=== PATIENT | female | born 1965 | race Caucasian/White ===

== ENCOUNTER 2018-11-10 19:36 | Emergency (ER) | payer MEDICAID ==
[2018-11-10] MEDS ORDERED: TRAZ50TA34 PO ×2 (19:48→21:47)
[2018-11-10] MEDS ORDERED: HYDR-2966 PO (19:48)
--- NOTE | 2018-11-10 19:57 | ER Report ---
History and Physical Time Seen By MD: 19:44 Hx. of Stated Complaint: started feeling bad about an hour ago. pain in rt shoulder and scapula when breathing HPI/ROS CHIEF COMPLAINT: Pain with inspiration HISTORY OF PRESENT ILLNESS: 53-year-old female patient presents to the emergency room with complaint of pain with inspiration. Patient states that the pain started approximately one hour prior to arrival. She states the pain is behind the right shoulder blade. She states that she has worsening pain whenever she takes a deep breath in. She states that the pain is a 9 out of 10. She does have a history of bulging disc in her neck. She states that that was diagnosed here in the emergency room several years ago. She denies having any fevers, chills, nausea, vomiting or diarrhea. She states that she has not taken any medication for this. She states that she is not able to find a way to set that is comfortable for her. REVIEW OF SYSTEMS: Respiratory: As noted above Cardiovascular: No chest pain, no palpitations. Gastrointestinal: No vomiting, no abdominal pain. Musculoskeletal: As noted above Allergies: Uncoded Allergies: phenothyzines (Allergy, Unknown, 11/10/18) Home Meds Active Scripts Clonidine Hcl (CLONIDINE HCL) 0.1 Mg Tablet, 0.1 MG PO BID PRN for HYPERTENSION, #14 TAB Prov:ANTONY BETANCOURT [facility] 11/10/18 Trazodone Hcl (TRAZODONE HCL) 50 Mg Tablet, 50 MG PO QHS PRN for INSOMNIA, #14 TAB Prov:ANTONY BETANCOURT [facility] 11/10/18 Prednisone (PREDNISONE) 20 Mg Tablet, 40 MG PO DAILY, #10 TAB Prov:ANTONY BETANCOURT [facility] 11/10/18 Hydrocodone Bit/Acetaminophen (HYDROCODON-ACETAMINOPHEN 5-325) 1 Each Tablet, 1 EACH PO Q4-6H PRN for PAIN, #8 TAB Prov:ANTONY BETANCOURT [facility] 11/10/18 Reported Medications Hydrochlorothiazide (HYDROCHLOROTHIAZIDE) 25 Mg Tablet, 1 TAB PO QDAY, TAB 11/10/18 Trazodone Hcl (TRAZODONE HCL) 50 Mg Tablet, 50 MG PO TID 11/10/18 Past Medical/Surgical History Patient has a past medical history of COPD, cholecystitis, herniated disc in neck, cervical cancer. Patient has a surgical history of appendectomy, cholecystectomy, liposuction. Reviewed Nurses Notes: Yes Hx Substance Use Disorder: No Hx Alcohol Use: No Constitutional Vital Sign - Last 24 Hours 11/10/18 11/10/18 11/10/18 11/10/18 19:38 19:41 19:51 20:00 Temp 98.5 Pulse 96 101 Resp 24 B/P (MAP) 133/105 133/105 (114) 156/136 (143) Pulse Ox 93 92 O2 Delivery Nasal Cannula 11/10/18 11/10/18 11/10/18 11/10/18 20:06 20:21 20:30 20:36 Pulse 99 94 ??? B/P (MAP) ???/??? (1665) Pulse Ox 94 95 11/10/18 11/10/18 11/10/18 11/10/18 20:44 20:49 21:00 21:04 Pulse 95 93 B/P (MAP) 181/138 (152) 188/125 (146) Pulse Ox 91 89 11/10/18 11/10/18 11/10/18 11/10/18 21:19 21:30 21:34 21:49 Pulse 92 89 85 B/P (MAP) 197/139 (158) Pulse Ox 91 92 92 Physical Exam General Appearance: The patient is alert, has no immediate need for airway protection and no current signs of toxicity. Respiratory: Chest is non tender, lungs are clear to auscultation. Cardiac: regular rate and rhythm Gastrointestinal: Abdomen is soft and non tender, no masses, bowel sounds normal. Musculoskeletal: Neck: Neck is supple and non tender. Extremities have full range of motion and are non tender. Skin: No rashes or lesions. DIFFERENTIAL DIAGNOSIS: After history and physical exam differential diagnosis was considered for shortness of breath including but not limited to pulmonary infectious process, COPD, asthma, pulmonary embolus and congestive heart failure. Included in the differential is pain secondary to bulging disc in neck. Medical Decision Making Data Points Result Diagram: 11/10/18201811/10/182018 Laboratory Hematology Test 11/10/18 20:19 Red Blood Count 4.86 M/uL (4.17-5.56) Mean Corpuscular Volume 94.8 fL (80.0-96.0) Mean Corpuscular Hemoglobin 31.1 pg (26.0-33.0) Mean Corpuscular Hemoglobin Concent 32.8 g/dL (32.0-36.0) Red Cell Distribution Width 15.9 % (11.5-14.5) Mean Platelet Volume 7.4 fL (7.2-11.1) Neutrophils (%) (Auto) 78.8 % (39.4-72.5) Lymphocytes (%) (Auto) 16.7 % (17.6-49.6) Monocytes (%) (Auto) 3.2 % (4.1-12.4) Eosinophils (%) (Auto) 0.4 % (0.4-6.7) Basophils (%) (Auto) 0.9 % (0.3-1.4) Nucleated RBC Relative Count (auto) 0.0 /100WBC Neutrophils # (Auto) 10.0 K/uL (2.0-7.4) Lymphocytes # (Auto) 2.1 K/uL (1.3-3.6) Monocytes # (Auto) 0.4 K/uL (0.3-1.0) Eosinophils # (Auto) 0.0 K/uL (0.0-0.5) Basophils # (Auto) 0.1 K/uL (0.0-0.1) Nucleated RBC Absolute Count (auto) 0.00 K/uL Erythrocyte Sedimentation Rate 14 mm/HOUR (0-30) D-Dimer Quantitative (PE/DVT) 0.47 ug/ml (0-0.50) Sodium Level 137 mmol/L (137-145) Potassium Level 3.9 mmol/L (3.5-5.0) Chloride Level 95 mmol/L (98-107) Carbon Dioxide Level 35 mmol/L (22-31) Blood Urea Nitrogen 8 mg/dl (7-18) Creatinine 0.60 mg/dl (0.52-1.04) Glomerular Filtration Rate Calc > 60.0 Random Glucose 93 mg/dl (75-110) Calcium Level 8.9 mg/dl (8.4-10.2) Total Bilirubin 0.4 mg/dl (0.2-1.3) Aspartate Amino Transf (AST/SGOT) 64 U/L (0-35) Alanine Aminotransferase (ALT/SGPT) 66 U/L (0-56) Alkaline Phosphatase 109 U/L (0-126) Troponin I < 0.012 ng/ml Total Protein 7.0 g/dl (6.3-8.2) Albumin 3.8 g/dl (3.5-5.0) Chemistry Test 11/10/18 20:19 White Blood Count 12.6 k/uL (4.5-11.0) Red Blood Count 4.86 M/uL (4.17-5.56) Hemoglobin 15.1 g/dL (12.0-16.0) Hematocrit 46.1 % (34.0-47.0) Mean Corpuscular Volume 94.8 fL (80.0-96.0) Mean Corpuscular Hemoglobin 31.1 pg (26.0-33.0) Mean Corpuscular Hemoglobin Concent 32.8 g/dL (32.0-36.0) Red Cell Distribution Width 15.9 % (11.5-14.5) Platelet Count 400 K/uL (150-450) Mean Platelet Volume 7.4 fL (7.2-11.1) Neutrophils (%) (Auto) 78.8 % (39.4-72.5) Lymphocytes (%) (Auto) 16.7 % (17.6-49.6) Monocytes (%) (Auto) 3.2 % (4.1-12.4) Eosinophils (%) (Auto) 0.4 % (0.4-6.7) Basophils (%) (Auto) 0.9 % (0.3-1.4) Nucleated RBC Relative Count (auto) 0.0 /100WBC Neutrophils # (Auto) 10.0 K/uL (2.0-7.4) Lymphocytes # (Auto) 2.1 K/uL (1.3-3.6) Monocytes # (Auto) 0.4 K/uL (0.3-1.0) Eosinophils # (Auto) 0.0 K/uL (0.0-0.5) Basophils # (Auto) 0.1 K/uL (0.0-0.1) Nucleated RBC Absolute Count (auto) 0.00 K/uL Erythrocyte Sedimentation Rate 14 mm/HOUR (0-30) D-Dimer Quantitative (PE/DVT) 0.47 ug/ml (0-0.50) Glomerular Filtration Rate Calc > 60.0 Calcium Level 8.9 mg/dl (8.4-10.2) Total Bilirubin 0.4 mg/dl (0.2-1.3) Aspartate Amino Transf (AST/SGOT) 64 U/L (0-35) Alanine Aminotransferase (ALT/SGPT) 66 U/L (0-56) Alkaline Phosphatase 109 U/L (0-126) Troponin I < 0.012 ng/ml Total Protein 7.0 g/dl (6.3-8.2) Albumin 3.8 g/dl (3.5-5.0) Coagulation Test 11/10/18 20:19 D-Dimer Quantitative (PE/DVT) 0.47 ug/ml EKG/Imaging EKG Interpretation 12 lead EKG: Rhythm: normal sinus rhythm [place]: normal QRS: normal, prolonged QT interval ST segments: normal Imaging Examination: CHEST PA AND LAT Comparison: None. History: pain with inspiration Findings: Cardiac and hilar contour size is within normal limits. No consolidation, nodule, or peribronchial inflammation. No pneumothorax, edema, or effusion. Osseous structures are intact. IMPRESSION: No evidence of acute cardiopulmonary disease. Report Dictated By: Tim Bassett MD at 11/10/2018 9:24 PM Report E-Signed By: Tim Bassett MD at 11/10/2018 9:27 PM ED Course/Re-evaluation ED Course Patient was admitted to an exam room, history and physical were obtained. Differential diagnoses were considered. On examination lungs are clear, heart is regular, abdomen soft nontender. Patient does have some tenderness to the right shoulder although the pain that she states she has is "deeper down. A chest x- ray was done to rule out pneumonia that was normal. CBC, CMP, troponin, d-dimer, ESR, CRP were done. Lab results were unremarkable, patient did have an elevated white count, but with those likely secondary to stress response. Patient had no fever here in the emergency room. I discussed the findings with the patient. I believe that this is likely related to her neck and the bulging disc that she's had in the past. I think there is inflammation along the nerve root. We'll go ahead and treat her with a limited supply of pain medication, prednisone. Patient requested that she get a prescription for oxygen as well as a refill of her trazodone. Those will be refilled for short. Time so she can set up with a primary care provider here in town. I discussed this with the patient who verbalized understanding and agreement with plan. Patient did have elevated blood pressure, 180/130. I did treat her with 0.1 mg of clonidine which brought her blood pressure down to 164/103. We will go ahead and send her with a prescription for clonidine that she can take as needed for high blood pressure. Decision to Disposition Date: Nov 10, 2018 Decision to Disposition Time: 21:43 Depart Departure Latest Vital Signs Vital Signs Date Time Temp Pulse Resp B/P (MAP) Pulse Ox O2 Delivery O2 Flow Rate FiO2 11/10/18 21:49 85 92 11/10/18 21:30 197/139 (158) 11/10/18 19:38 98.5 24 Nasal Cannula Impression: Primary Impression: COPD (chronic obstructive pulmonary disease) Additional Impressions: Right shoulder pain Insomnia Condition: Improved Disposition: HOME OR SELF-CARE New Scripts Clonidine Hcl (CLONIDINE HCL) 0.1 Mg Tablet 0.1 MG PO BID PRN for HYPERTENSION, #14 TAB Prov: ANTONY BETANCOURTP 11/10/18 Trazodone Hcl (TRAZODONE HCL) 50 Mg Tablet 50 MG PO QHS PRN for INSOMNIA, #14 TAB Prov: ANTONY BETANCOURT [facility] 11/10/18 Prednisone (PREDNISONE) 20 Mg Tablet 40 MG PO DAILY, #10 TAB Prov: ANTONY BETANCOURT [facility] 11/10/18 Hydrocodone Bit/Acetaminophen (HYDROCODON-ACETAMINOPHEN 5-325) 1 Each Tablet 1 EACH PO Q4-6H PRN for PAIN, #8 TAB Prov: ANTONY BETANCOURTP 11/10/18 Departure Forms: ER Transition Record, Home Oxygen, Nebulizer RX, Home Oxygen [facility]-Oxygen: Oxygen Concentrator, Portable Oxygen Gas Reason for Use/Diagnosis: COPD Start Date of the Order: Nov 10, 2018 Dosage or Concentration (if applicable) - LPM: 4 Route of Administration (if applicable): Nasal Cannula Frequency of Use: Continuous Duration Home O2 Required: 1 Duration Units: Months Room Air Oxygen Saturation: 83 ER Prescribing Physician's Name: Antonyrobinson Betancourt NPI Numbers for Local ER MDs: Serafin [id number] Medications Reconciliation, Patient Portal Information Patient Instructions: COPD (Chronic Obstructive Pulmonary Disease) (ED) Additional Instructions: Limit activity by pain. Get plenty of rest. Follow up with your primary care provider in the next week. Continue with low salt diet. Return to the ER if condition worsens. Problem Qualifiers Primary Impression: COPD (chronic obstructive pulmonary disease) COPD type: COPD with acute exacerbation Qualified Codes: J44.1 - Chronic obstructive pulmonary disease with (acute) exacerbation Additional Impressions: Right shoulder pain Chronicity: acute Qualified Codes: M25.511 - Pain in right shoulder Insomnia Insomnia type: unspecified Qualified Codes: G47.00 - Insomnia, unspecified ANTONY BETANCOURT Nov 10, 2018 19:57
[2018-11-10] MEDS ORDERED: NS(*) 0.9% 500 ML BAG 500 ML IV ONE (20:00)
[2018-11-10] MEDS ORDERED: MORPHINE 4 MG/ML SDV IVP ONE (20:00)
[2018-11-10 20:44] LABS: PLATELET COUNT, AUTOMATED 400 K/uL (150-450)
--- NOTE | 2018-11-10 21:28 | EKG ---
[place] [facility] [place]IENT NAME: AMOS PEREZ : [id number] MR: [id number] V: [id number] EXAM DATE: ORDERING PHYSICIAN: JUAN ÁLVAREZ TECHNOLOGIST: BERENICE Test Reason : PAIN WITH INSPIRATIO Blood Pressure : / mmHG Vent. Rate : 090 BPM Atrial Rate : 090 BPM P-R Int : 126 ms QRS Dur : 074 ms QT Int : 378 ms P-R-T Axes : 042 052 058 degrees QTc Int : 462 ms Normal sinus rhythm Inverted T wave V1-4 with flattened T in V 5-6 is a non-specific finding. Consider electrolyte abnor mality, lead placement, normal variant or ischemia. Mildly prolonged QTc. Abnormal ECG No previous ECGs available Confirmed by ROC YOUNGBLOOD ([id number]) on 11/11/2018 3:02:37 AM Referred By: Confirmed By:ROC YOUNGBLOOD
--- NOTE | 2018-11-10 21:32 | RADIOLOGY IMAGING REPORT ---
FACILITY: [facility] - [place] PATIENT NAME: Stacy Sommer : 1965 MR: [id number] V: [id number] EXAM DATE: ORDERING PHYSICIAN: JUAN ÁLVAREZ TECHNOLOGIST: Location: [facility] Patient: Stacy Sommer : 1965 Visit/Account:[id number] Date of Sevice: 11/10/2018 Examination: CHEST PA AND LAT Comparison: None. History: pain with inspiration Findings: Cardiac and hilar contour size is within normal limits. No consolidation, nodule, or perib ronchial inflammation. No pneumothorax, edema, or effusion. Osseous structures are intact. IMPRESSION: No evidence of acute cardiopulmonary disease. Report Dictated By: Tim Bassett MD at 11/10/2018 9:24 PM Report E-Signed By: Tim Bassett MD at 11/10/2018 9:27 PM [id number]
[2018-11-10] MEDS ORDERED: PRED20TA6 PO (21:47)
[2018-11-10] MEDS ORDERED: HYDR-385 PO (21:47)
[2018-11-10] MEDS ORDERED: CLON-327 PO (21:50)
[2018-11-10] MEDS ORDERED: cloNIDine HCL 0.1 MG TAB PO ONE (21:55)
[2018-11-10 22:19] VITALS: BP 164/103
[2018-11-10] MEDS ORDERED: ACET/HYDROC 5/325MG TH ER ONLY 2 TAB/BOTTLE ONE (22:33)
== END 2018-11-10 22:23 | disposition home or self-care (01) ==
LOC: ER 19:58
DX: J44.1 Chronic obstructive pulmonary disease with (acute) exacerbation (principal); M25.511 Pain in right shoulder; G47.00 Insomnia, unspecified
CPT/HCPCS: 36415; 71046; 84484; 85025; 85379; 85651; 86141; 93005; 96361; 96374; 99284; J2270; J7040; 82040; 82247; 82310; 82374; 82435; 82565; 82947; 84075; 84132; 84155; 84295; 84450; 84460; 84520

== ENCOUNTER → 2018-11-10 | Outpatient (CLI) | payer MEDICAID ==
[~2018-11-10] MED LIST: CLON-327 PO; HYDR-2966 PO; HYDR-385 PO; PRED20TA6 PO; TRAZ50TA34 PO
== END ==
LOC: AMB 19:15
PROVIDERS: ATTEND Nurse Practitioner
DX: M54.9 Dorsalgia, unspecified (principal); R06.02 Shortness of breath
CPT/HCPCS: A0425; A0429

== ENCOUNTER 2018-12-27 11:03 | Inpatient (IN) | payer MEDICAID ==
[~2018-12-27] VITALS: Ht 154.9 cm; Wt 117.9 kg
--- NOTE | 2018-12-27 11:11 | ER Report ---
History and Physical Time Seen By MD: 11:11 HPI/ROS CHIEF COMPLAINT: Shortness of breath HISTORY OF PRESENT ILLNESS: This is a 53-year-old female who presents to the emergency department for shortness of breath. The patient states that yesterday afternoon she began having shortness of breath, progressing through the night worse today. Not exertional in nature. Patient also states that she has chest pressure, some chills and aches, a headache. She states that she was babysitting her granddaughter yesterday she is not sure of her granddaughter was ill. She denies fevers. No rashes, no chest pain. The patient was here about one month ago with COPD exacerbation. REVIEW OF SYSTEMS: Constitutional: As above. Eyes: No discharge. ENT: No sore throat. Cardiovascular: No chest pain, no palpitations. Respiratory: As above. Gastrointestinal: No abdominal pain, no vomiting. Genitourinary: No hematuria. Musculoskeletal: No back pain. Skin: No rashes. Neurological: As above. Allergies: Uncoded Allergies: phenothyzines (Allergy, Unknown, 11/10/18) Home Meds Active Scripts Clonidine Hcl (CLONIDINE HCL) 0.1 Mg Tablet, 0.1 MG PO BID PRN for HYPERTENSION, #14 TAB Prov:JUAN ÁLVAREZ [facility] 11/10/18 Trazodone Hcl (TRAZODONE HCL) 50 Mg Tablet, 50 MG PO QHS PRN for INSOMNIA, #14 TAB Prov:JUAN ÁLVAREZ [facility] 11/10/18 Hydrocodone Bit/Acetaminophen (HYDROCODON-ACETAMINOPHEN 5-325) 1 Each Tablet, 1 EACH PO Q4-6H PRN for PAIN, #8 TAB Prov:JUAN ÁLVAREZ [facility] 11/10/18 Reported Medications Hydrochlorothiazide (HYDROCHLOROTHIAZIDE) 25 Mg Tablet, 1 TAB PO QDAY, TAB 11/10/18 Trazodone Hcl (TRAZODONE HCL) 50 Mg Tablet, 50 MG PO TID 11/10/18 Discontinued Scripts Prednisone (PREDNISONE) 20 Mg Tablet, 40 MG PO DAILY, #10 TAB Prov:JUAN ÁLVAREZP 11/10/18 Past Medical/Surgical History The patient has a past medical and surgical history of COPD, wears continuous oxygen, asthma, pneumonia, urinary frequency, herniated disks in neck, chronic back pain, wears glasses, appendectomy, cholecystectomy, mobile at removed from back. Reviewed Nurses Notes: Yes Hx Substance Use Disorder: No Hx Alcohol Use: No Constitutional Vital Sign - Last 24 Hours 12/27/18 12/27/18 12/27/18 12/27/18 11:03 11:10 11:13 11:16 Temp 99.6 Pulse ??? 103 Resp 24 B/P (MAP) 147/101 (116) 147/101 163/111 (128) Pulse Ox 90 O2 Delivery Nasal Cannula 12/27/18 12/27/18 12/27/18 12/27/18 11:18 11:33 11:46 11:48 Pulse 102 99 101 Resp 15 30 17 Pulse Ox 92 97 91 O2 Flow Rate 3.0 12/27/18 12/27/18 12/27/18 12/27/18 11:59 12:03 12:18 12:23 Pulse 103 98 99 Resp 23 33 28 B/P (MAP) 142/104 (117) Pulse Ox 92 89 12/27/18 12/27/18 12/27/18 12/27/18 12:23 12:30 12:33 12:48 Pulse 111 109 Resp 16 56 B/P (MAP) 137/84 (101) Pulse Ox 96 88 95 O2 Delivery Nasal Cannula O2 Flow Rate 3.0 12/27/18 12/27/18 13:00 13:26 Temp 98.5 B/P (MAP) ???/??? (2235) Physical Exam General Appearance: The patient is alert, has no immediate need for airway protection and no signs of toxicity, pursed lips, working hard to exhale. Eyes: Pupils equal and round no pallor or injection. ENT, Mouth: Mucous membranes are dry. Respiratory: There are no retractions, diminished throughout. Pursed lip breathi ng. Cardiovascular: Regular rate and rhythm, distant, no murmurs, clicks or rubs. Gastrointestinal: Abdomen is soft, round, and non tender, no masses, bowel sounds normal. Neurological: Alert and oriented 4. Moving all extremities. Following all commands. No focal neuro deficits. Skin: Warm and dry, no rashes. Musculoskeletal: Neck is supple non tender. Extremities are nontender, nonswollen and have full range of motion. DIFFERENTIAL DIAGNOSIS: After history and physical exam differential diagnosis was considered for shortness of breath including but not limited to pulmonary infectious process, COPD, asthma, pulmonary embolus and congestive heart failure. Medical Decision Making Data Points Result Diagram: 12/27/18 1134 12/27/18 1817 Laboratory Hematology Test 12/27/18 11:14 12/27/18 11:34 12/27/18 11:48 Influenza Virus Type A (PCR) Positive (NEGATIVE) Influenza Virus Type B (PCR) Negative (NEGATIVE) Red Blood Count 4.27 M/uL (4.17-5.56) Mean Corpuscular Volume 99.5 fL (80.0-96.0) Mean Corpuscular Hemoglobin 33.1 pg (26.0-33.0) Mean Corpuscular Hemoglobin Concent 33.3 g/dL (32.0-36.0) Red Cell Distribution Width 16.8 % (11.5-14.5) Mean Platelet Volume 7.6 fL (7.2-11.1) Neutrophils (%) (Auto) 88.8 % (39.4-72.5) Lymphocytes (%) (Auto) 5.0 % (17.6-49.6) Monocytes (%) (Auto) 5.6 % (4.1-12.4) Eosinophils (%) (Auto) 0.1 % (0.4-6.7) Basophils (%) (Auto) 0.5 % (0.3-1.4) Nucleated RBC Relative Count (auto) 0.0 /100WBC Neutrophils # (Auto) 6.1 K/uL (2.0-7.4) Lymphocytes # (Auto) 0.3 K/uL (1.3-3.6) Monocytes # (Auto) 0.4 K/uL (0.3-1.0) Eosinophils # (Auto) 0.0 K/uL (0.0-0.5) Basophils # (Auto) 0.0 K/uL (0.0-0.1) Nucleated RBC Absolute Count (auto) 0.00 K/uL B-Type Natriuretic Peptide 143 pg/ml (0-100) Total Bilirubin 0.9 mg/dl (0.2-1.3) Aspartate Amino Transf (AST/SGOT) 108 U/L (0-35) Alanine Aminotransferase (ALT/SGPT) 96 U/L (0-56) Alkaline Phosphatase 72 U/L (0-126) Troponin I < 0.012 ng/ml Total Protein 6.3 g/dl (6.3-8.2) Albumin 3.8 g/dl (3.5-5.0) Chemistry Test 12/27/18 11:14 12/27/18 11:34 12/27/18 11:48 Influenza Virus Type A (PCR) Positive (NEGATIVE) Influenza Virus Type B (PCR) Negative (NEGATIVE) White Blood Count 6.9 k/uL (4.5-11.0) Red Blood Count 4.27 M/uL (4.17-5.56) Hemoglobin 14.1 g/dL (12.0-16.0) Hematocrit 42.5 % (34.0-47.0) Mean Corpuscular Volume 99.5 fL (80.0-96.0) Mean Corpuscular Hemoglobin 33.1 pg (26.0-33.0) Mean Corpuscular Hemoglobin Concent 33.3 g/dL (32.0-36.0) Red Cell Distribution Width 16.8 % (11.5-14.5) Platelet Count 176 K/uL (150-450) Mean Platelet Volume 7.6 fL (7.2-11.1) Neutrophils (%) (Auto) 88.8 % (39.4-72.5) Lymphocytes (%) (Auto) 5.0 % (17.6-49.6) Monocytes (%) (Auto) 5.6 % (4.1-12.4) Eosinophils (%) (Auto) 0.1 % (0.4-6.7) Basophils (%) (Auto) 0.5 % (0.3-1.4) Nucleated RBC Relative Count (auto) 0.0 /100WBC Neutrophils # (Auto) 6.1 K/uL (2.0-7.4) Lymphocytes # (Auto) 0.3 K/uL (1.3-3.6) Monocytes # (Auto) 0.4 K/uL (0.3-1.0) Eosinophils # (Auto) 0.0 K/uL (0.0-0.5) Basophils # (Auto) 0.0 K/uL (0.0-0.1) Nucleated RBC Absolute Count (auto) 0.00 K/uL B-Type Natriuretic Peptide 143 pg/ml (0-100) Total Bilirubin 0.9 mg/dl (0.2-1.3) Aspartate Amino Transf (AST/SGOT) 108 U/L (0-35) Alanine Aminotransferase (ALT/SGPT) 96 U/L (0-56) Alkaline Phosphatase 72 U/L (0-126) Troponin I < 0.012 ng/ml Total Protein 6.3 g/dl (6.3-8.2) Albumin 3.8 g/dl (3.5-5.0) EKG/Imaging EKG Interpretation 12 lead EKG: Time of EKG 1114 Rhythm: Sinus tachycardia with ventricular rate 103 bpm. [place]: normal QRS: Low voltage. ST segments: No ST depression or elevation identified. Inverted T waves in V1, V2, flattening T waves in V3 through V6. No significant changes from the 11/10/2018 EKG other than current EKG showing flattened T waves in V3 through V6 where his and the November EKG inverted T waves. Imaging Location: [facility] - [place] Patient: Stacy Sommer : 1965 Visit/Account:[id number] Date of Sevice: 12/27/2018 2 VIEWS CHEST INDICATION: Respiratory distress. History smoking. COMPARISON: 11/10/2018. FINDINGS: Cardiomediastinal silhouette and pulmonary vessels within normal limits. There is no focal infiltrate or lobar consolidation. There is no pneumothorax or pleural effusion. No nodule. There is again some mild thickening of the right minor fissure. Mild chronic interstitial changes. Upper abdomen is unremarkable. No acute bony abnormality. IMPRESSION: 1. No acute cardiopulmonary process. Report Dictated By: Sylvester Monsivais at 12/27/2018 12:10 PM Report E-Signed By: Sylvester Monsivais at 12/27/2018 12:12 PM WSN:[id number] ED Course/Re-evaluation Clinical Indication for ER IV: Hydration, IV Access ED Course The patient was admitted to a room. A history and physical were obtained. Differential diagnoses were considered. An IV was started. A CBC, CMP and 1 L normal saline bolus were given. Patient was given 2 DuoNeb which did improve her aeration. She was also given so 0.5 mg IV Ativan for anxiety.Patient was given 125 mg IV Solu-Medrol. CBC showing MCV 99.5, this is all from the previous study which was a month ago, MCH 33.1, left shift, sodium 133, potassium 2.8, chloride 92, CO2 32, calcium 6.5, magnesium 0.4, AST 108, ALT 96, negative troponin, BNP 143, patient was given 40 mEq by mouth potassium, 2 g IV magnesium. Patient was positive for influenza A. Negative two-view chest x-ray. I did review the results with the patient. The patient and I discussed a hospital admission, I did speak with Dr. Carin Bronson the hospitalist on-call, he is accepting the patient in the hospitalist services for influenza A, COPD exacerbation, hypokalemia, hypocalcemia and hypomagnesemia. Patient was admitted to the medical floor. Patient had significant relief of her symptoms at the time of the admission. 12/27/2018 12:34:23 pm I did speak with Dr. Melinda Bronson regarding the patient's case, he will come and evaluate patient for possible admission. 12/27/2018 1:15:37 pm the patient was accepted into the hospitalist services, she will be admitted to the medical floor. Decision to Disposition Date: Dec 27, 2018 Decision to Disposition Time: 13:27 Depart Departure Latest Vital Signs Vital Signs Date Time Temp Pulse Resp B/P (MAP) Pulse Ox O2 Delivery O2 Flow Rate FiO2 12/27/18 13:26 98.5 12/27/18 13:00 ???/??? (1665) 12/27/18 12:48 109 56 95 12/27/18 12:23 Nasal Cannula 3.0 Impression: Primary Impression: Influenza A Additional Impressions: COPD exacerbation Hypokalemia Hypocalcemia Hypomagnesemia Condition: Improved Disposition: Admitted from ER Problem Qualifiers SANDEE CASTAÑEDA TOBACCO STEMMER-BC Dec 27, 2018 11:11
[2018-12-27] MEDS ORDERED: ALBUTEROL/IPRATROPIUM 3 ML NEB NEB ONE ×2 (11:20→12:05)
[2018-12-27] MEDS ORDERED: methylPREDNIS SUCC 125 MG/2ML IVP ONE (11:35)
[2018-12-27 11:44] LABS: PLATELET COUNT, AUTOMATED 176 K/uL (150-450)
[2018-12-27] MEDS ORDERED: LORazepam 2 MG/ML VIAL IVP ONE (12:05)
[2018-12-27] MEDS ORDERED: POTASSIUM CHL 20 MEQ TABCR PO ONE (12:15)
--- NOTE | 2018-12-27 12:17 | RADIOLOGY IMAGING REPORT ---
FACILITY: [facility] PATIENT NAME: Stacy Sommer : 1965 MR: [id number] V: [id number] EXAM DATE: ORDERING PHYSICIAN: SANDEE CASTAÑEDA TECHNOLOGIST: Location: [facility] Patient: Stacy Sommer : 1965 Visit/Account:[id number] Date of Sevice: 12/27/2018 2 VIEWS CHEST INDICATION: Respiratory distress. History smoking. COMPARISON: 11/10/2018. FINDINGS: Cardiomediastinal silhouette and pulmonary vessels within normal limits. There is no focal infiltrate or lobar consolidation. There is no pneumothorax or pleural effusion. No nodule. There is again some mild thickening of the right minor fissure. Mild chronic interstitial changes. Upper abdomen is unremarkable. No acute bony abnormality. IMPRESSION: 1. No acute cardiopulmonary process. Report Dictated By: Sylvester Monsivais at 12/27/2018 12:10 PM Report E-Signed By: Sylvester Monsivais at 12/27/2018 12:12 PM WSN:[id number]
[2018-12-27] MEDS ORDERED: MAGNESIUM SUL* 2 GM/50 ML IVPB 50 ML IVPB ONE ×2 (12:30→19:20)
--- NOTE | 2018-12-27 13:52 | History & Physical ---
History of Present Illness History of Present Illness 53yo female with COPD who came to the ER for vomiting, diarrhea, and SOB. Yesterday, she developed nausea, vomiting, diarrhea, chills, cough and chest tightness. She reports multiple episodes of vomiting up clear substance. She also had multiple mucus like, yellow stools. This morning, she turned up her O2 from 3 liters to 5 liters because she was reading below 90%. She didn't sleep well last night. In the ER, she received DuoNeb, methylprednisolone, and Ativan. Staff reports that she is breathing more easily. History Problems: (1) Anxiety (2) HTN (hypertension) Status: Chronic (3) COPD (chronic obstructive pulmonary disease) Status: Acute Home Meds Active Scripts Clonidine Hcl (CLONIDINE HCL) 0.1 Mg Tablet, 0.1 MG PO BID PRN for HYPERTENSION, #14 TAB Prov:JUAN ÁLVAREZ [facility] 11/10/18 Trazodone Hcl (TRAZODONE HCL) 50 Mg Tablet, 50 MG PO QHS PRN for INSOMNIA, #14 TAB Prov:JUAN ÁLVAREZ [facility] 11/10/18 Hydrocodone Bit/Acetaminophen (HYDROCODON-ACETAMINOPHEN 5-325) 1 Each Tablet, 1 EACH PO Q4-6H PRN for PAIN, #8 TAB Prov:JUAN ÁLVAREZ [facility] 11/10/18 Reported Medications Hydrochlorothiazide (HYDROCHLOROTHIAZIDE) 25 Mg Tablet, 1 TAB PO QDAY, TAB 11/10/18 Trazodone Hcl (TRAZODONE HCL) 50 Mg Tablet, 50 MG PO TID 11/10/18 Discontinued Scripts Prednisone (PREDNISONE) 20 Mg Tablet, 40 MG PO DAILY, #10 TAB Prov:JUAN ÁLVAREZ [facility] 11/10/18 Allergies: Uncoded Allergies: phenothyzines (Allergy, Unknown, 11/10/18) Hx Alcohol Use: No (occ) Review of Systems All Systems Reviewed/Normal: Yes, Except as Noted Exam Vital Signs Vital Signs Date Time Temp Pulse Resp B/P (MAP) Pulse Ox O2 Delivery O2 Flow Rate FiO2 12/27/18 13:26 98.5 12/27/18 12:23 96 Nasal Cannula 3.0 12/27/18 12:23 99 28 12/27/18 11:13 147/101 General Appearance: Alert, Awake, Other (mildly ill appearing. Normal wob) Neuro: No Gross deficits ENT: Moist Mucous Membranes Cardiovascular: Other (tachy, regular, no m/r/g) Respiratory: Clear to Auscultation (Moving air well to the bases) GI: Abd Soft and Non-Tender Extremities: No Edema Integumentary: No Jaundice, No Cyanosis Medical Decision Making Data Points Result Diagram: 12/27/18 1134 12/27/18 1148 Item Value Date Time Calcium Level 6.5 mg/dl *L 12/27/18 1148 Magnesium Level 0.4 mg/dl *L 12/27/18 1148 Total Bilirubin 0.9 mg/dl 12/27/18 1148 Aspartate Amino Transf (AST/SGOT) 108 U/L H 12/27/18 1148 Alanine Aminotransferase (ALT/SGPT) 96 U/L H 12/27/18 1148 Alkaline Phosphatase 72 U/L 12/27/18 1148 Troponin I < 0.012 ng/ml 12/27/18 1148 B-Type Natriuretic Peptide 143 pg/ml H 12/27/18 1134 Influenza Virus Type A (PCR) Positive 12/27/18 1114 Mean Corpuscular Volume 99.5 fL H 12/27/18 1134 EKG / Imaging Imaging CXR - 1. No acute cardiopulmonary process. Assessment and Plan Problems: (1) Influenza A Status: Acute Assessment & Plan: She presented with 24 hours of fevers, chills, cough, vomiting and diarrhea. She will be started on Tamiflu. (2) COPD exacerbation Status: Acute Assessment & Plan: Secondary to influenza. She will be started on methylprednisolone, DuoNebs and prn albuterol. She is at her baseline O2 requirement of 3 liters. (3) Hypokalemia Status: Acute Assessment & Plan: Secondary to vomiting and diarrhea that is exacerbated by HCTZ use. Replace K, hold HCTZ, and follow labs. (4) Hypomagnesemia Status: Acute Assessment & Plan: See above. (5) Hypocalcemia Status: Acute Assessment & Plan: Etiology unclear. Will recheck later today. (6) HTN (hypertension) Status: Chronic Assessment & Plan: Continue chronic clonidine, but hold HCTZ. See above. Venous Thromboembolism Antithrombotics Is Pt On Any Antithrombotics?: No Exam Sepsis Risk: No Definite Risk SABAS SAEED MD Dec 27, 2018 13:52
[2018-12-27 14:23] VITALS: BP 140/72
[2018-12-27] MEDS: OSELTAMIVIR PHOS 75 MG CAP PO SCH ×2 (14:24→21:04)
[2018-12-27] MEDS: NAPROXEN 500 MG TAB PO PRN (14:25)
--- NOTE | 2018-12-27 14:37 | EKG ---
FACILITY: [facility] [place] PATIENT NAME: AMOS PEREZ : [id number] MR: [id number] V: [id number] EXAM DATE: ORDERING PHYSICIAN: SANDEE CASTAÑEDA TECHNOLOGIST: NARINEDR Test Reason : CHEST TIGHTNESS Blood Pressure : / mmHG Vent. Rate : 103 BPM Atrial Rate : 103 BPM P-R Int : 152 ms QRS Dur : 072 ms QT Int : 356 ms P-R-T Axes : 051 038 065 degrees QTc Int : 466 ms Sinus tachycardia with premature atrial complexes Low voltage QRS No ST-T abnormalities When compared with ECG of 10-NOV-2018 20:05, premature atrial complexes are now present Anterior T inversion has resolved Confirmed by SABAS SAEED ([id number]) on 12/27/2018 7:26:01 PM Referred By: DR PUCKETT Confirmed By:SABAS SAEED
[2018-12-27] MEDS: ALBUTEROL/IPRATROPIUM 3 ML NEB NEB SCH (18:13)
[2018-12-27] MEDS: methylPREDNIS SUCC 125 MG/2ML IVP SCH ×2 (18:20→23:53)
[2018-12-27 18:22] VITALS: BP 127/72
[2018-12-27] MEDS ORDERED: NS(*) 0.9% 250 ML BAG 250 ML ONE (19:40)
[2018-12-27] MEDS: cloNIDine HCL 0.1 MG TAB PO SCH (21:04)
[2018-12-27] MEDS: traZODone HCL 50 MG TAB PO PRN (21:04)
[2018-12-27 21:05] VITALS: BP 137/79
[2018-12-27] MEDS: GUAIFENESIN/DEXTROMETHORPHAN 5 ML PO PRN (21:56)
[2018-12-27] MEDS: BENZONATATE 100 MG CAP PO PRN (21:57)
[2018-12-28 02:54] VITALS: BP 159/111
[2018-12-28] MEDS: GUAIFENESIN/DEXTROMETHORPHAN 5 ML PO PRN ×4 (02:57→19:23)
[2018-12-28] MEDS: NAPROXEN 500 MG TAB PO PRN ×3 (02:57→21:56)
[2018-12-28] MEDS: ALBUTEROL 2.5 MG/3 ML NEB NEB PRN ×2 (03:02→21:25)
[2018-12-28] MEDS: ALBUTEROL/IPRATROPIUM 3 ML NEB NEB SCH ×3 (05:55→16:37)
[2018-12-28] MEDS: methylPREDNIS SUCC 125 MG/2ML IVP SCH (06:27)
[2018-12-28 06:31] VITALS: BP 114/74
[2018-12-28] MEDS: BENZONATATE 100 MG CAP PO PRN ×3 (06:43→20:47)
[2018-12-28 06:48] LABS: PLATELET COUNT, AUTOMATED 184 K/uL (150-450)
[2018-12-28] MEDS: OSELTAMIVIR PHOS 75 MG CAP PO SCH ×2 (08:58→20:46)
[2018-12-28] MEDS: cloNIDine HCL 0.1 MG TAB PO SCH ×2 (08:58→20:49)
[2018-12-28] MEDS: ENOXAPARIN 40 MG/0.4ML SYR SC SCH (08:59)
[2018-12-28 10:43] VITALS: BP 145/78
[2018-12-28 12:14] VITALS: BMI 49.1
[2018-12-28 12:21] VITALS: BMI 49.1
[2018-12-28 12:28] VITALS: BMI 49.1
[2018-12-28] MEDS ORDERED: POTASSIUM CHL 20 MEQ TABCR PO ONE (13:00)
[2018-12-28] MEDS: ACETAMINOPHEN 500 MG TAB PO PRN (13:54)
--- NOTE | 2018-12-28 15:47 | Hospitalist Progress Note ---
Subjective Progress Notes Subjective 53F admitted with hypokalemia, hypomagnesemia, hypocalcemia. ALLY overnight, Mg now replaced will give some PO calcium and monitor effect. Patient Complains of: Gastrointestinal: No Nausea, No Vomiting Physical Exam Vital Signs Date Time Temp Pulse Resp B/P (MAP) Pulse Ox O2 Delivery O2 Flow Rate FiO2 12/28/18 11:17 88 20 12/28/18 11:10 92 Nasal Cannula 3.5 12/28/18 10:43 98.7 145/78 (100) Intake and Output 12/28/18 07:00 Intake Total 760 ml Balance 760 ml Intake Oral 610 ml IV Total 150 ml # Voids 4 # Bowel Movements 2 General Appearance: Alert, Awake, No Acute Distress, Afebrile Neuro: No Gross deficits ENT: Normal Cardiovascular: Normal Rhythm & Peripheral Pulses Respiratory: No Respiratory Distress (on baseline O2) : Normal Extremities: Soft and Non Tender, Warm, Pulses, Perfused Integumentary: Skin Intact without Lesion / Mass Result Diagram: 12/28/1860612/28/18606 Assessment and Plan Problems: (1) Influenza A Status: Acute Assessment & Plan: She presented with 24 hours of fevers, chills, cough, vomiting and diarrhea. She was started on Tamiflu. (2) COPD exacerbation Status: Acute Assessment & Plan: Secondary to influenza. She is on steroid, DuoNebs and prn albuterol. She is at her baseline O2 requirement of 3 liters. (3) Hypokalemia Status: Acute Assessment & Plan: Secondary to vomiting and diarrhea that is exacerbated by HCTZ use. Replace K, hold HCTZ, and follow labs. (4) Hypomagnesemia Status: Acute Assessment & Plan: See above. Now resolved. (5) Hypocalcemia Status: Acute Assessment & Plan: Likely secondary to profound hypomagnesemia. Mg replaced to will now replace po and recheck labs in am. (6) HTN (hypertension) Status: Chronic Assessment & Plan: Continue chronic clonidine, but hold HCTZ. See above. Exam Sepsis Risk: No Definite Risk SUAREZ KING DE LA PAZ DO Dec 28, 2018 15:34
[2018-12-28] MEDS: CALCIUM CARBONATE 500 MG CHEW PO SCH (16:55)
[2018-12-28 16:56] VITALS: BP 154/87
[2018-12-28 19:33] VITALS: BP 138/81
[2018-12-28] MEDS: traZODone HCL 50 MG TAB PO PRN (20:47)
[2018-12-28] MEDS: NYSTATIN 100,000 U/GM PWD 15GM TP SCH (20:48)
[2018-12-29 00:07] VITALS: BP 163/96
[2018-12-29 03:22] VITALS: BP 146/88
[2018-12-29] MEDS: GUAIFENESIN/DEXTROMETHORPHAN 5 ML PO PRN (03:22)
[2018-12-29] MEDS: ALBUTEROL/IPRATROPIUM 3 ML NEB NEB SCH ×3 (05:31→17:10)
[2018-12-29] MEDS: hydrOXYzine 25 MG TAB PO PRN ×2 (05:48→21:13)
[2018-12-29 09:28] VITALS: BP 155/102
[2018-12-29] MEDS: NYSTATIN 100,000 U/GM PWD 15GM TP SCH ×2 (09:34→21:10)
[2018-12-29] MEDS: ENOXAPARIN 40 MG/0.4ML SYR SC SCH (09:35)
[2018-12-29] MEDS: cloNIDine HCL 0.1 MG TAB PO SCH ×2 (09:35→21:10)
[2018-12-29] MEDS: OSELTAMIVIR PHOS 75 MG CAP PO SCH ×2 (09:36→21:10)
[2018-12-29] MEDS ORDERED: OSE75 PO (09:49)
[2018-12-29] MEDS ORDERED: PRED-1 PO (09:49)
--- NOTE | 2018-12-29 09:51 | Hospitalist Depart ---
Discharge Summary Reason for Hosp/Final Diag: (1) Influenza A Status: Acute Hospital Course & Plan: She presented with 24 hours of fevers, chills, cough, vomiting and diarrhea. She did test positive for influenza A. She has been started on Tamiflu. (2) COPD exacerbation Status: Acute Hospital Course & Plan: She was placed on a prednisone taper and albuterol. (3) Hypokalemia Status: Acute Hospital Course & Plan: Resolved with replacement therapy. (4) Hypomagnesemia Status: Acute Hospital Course & Plan: Resolved with supplementation. (5) Hypocalcemia Status: Acute Hospital Course & Plan: Her levels correct appropriately. (6) HTN (hypertension) Status: Chronic Hospital Course & Plan: She is on chronic treatment with clonidine and hydrochlorothiazide. Departure Latest Vital Signs Vital Signs 12/29/18 09:28 Temp 97.7 Pulse 83 Resp 16 B/P (MAP) 155/102 (119) Pulse Ox 92 O2 Delivery Nasal Cannula O2 Flow Rate 3.0 Weight (Pounds): 260 Result Diagram: 12/28/1860612/29/18 0544 Condition: Improved Discharge: Home, Self Care Discharge Instructions Home Meds Active Scripts Albuterol Sulfate (VENTOLIN HFA) 18 Gm Inh, 2 PUFF INH Q4-6H PRN for WHEEZING, #1 INH Prov:SUMMER VERDE DO 12/29/18 Prednisone 10 Mg Tab (PREDNISONE 10 MG TAB) 10 Mg Tablet, 10 MG PO DIRECTED, #30 TAB Take 4 tab daily x 3 days, then 3 tab daily x 3 days, then 2 tabs daily x 3 day, then 1 tab daily x 3 days. Prov:SUMMER VERDE DO 12/29/18 Oseltamivir Phosphate (TAMIFLU) 75 Mg Cap, 75 MG PO BID, #4 CAP Prov:SUMMER VERDE DO 12/29/18 Clonidine Hcl (CLONIDINE HCL) 0.1 Mg Tablet, 0.1 MG PO BID PRN for HYPERTENSION, #14 TAB Prov:JUAN ÁLVAREZ 11/10/18 Trazodone Hcl (TRAZODONE HCL) 50 Mg Tablet, 50 MG PO QHS PRN for INSOMNIA, #14 TAB Prov:JUAN ÁLVAREZ 11/10/18 Reported Medications Hydrochlorothiazide (HYDROCHLOROTHIAZIDE) 25 Mg Tablet, 1 TAB PO QDAY, TAB 11/10/18 Trazodone Hcl (TRAZODONE HCL) 50 Mg Tablet, 50 MG PO TID 11/10/18 Discontinued Scripts Hydrocodone Bit/Acetaminophen (HYDROCODON-ACETAMINOPHEN 5-325) 1 Each Tablet, 1 EACH PO Q4-6H PRN for PAIN, #8 TAB Prov:JUAN ÁLVAREZ 11/10/18 Prednisone (PREDNISONE) 20 Mg Tablet, 40 MG PO DAILY, #10 TAB Prov:JUAN ÁLVAREZ [employer] 11/10/18 Diet: Regular Activity: As Tolerated Venous Thromboembolism Antithrombotics Is Pt On Any Antithrombotics?: No SUMMER VERDE DO Dec 29, 2018 09:51
[2018-12-29] MEDS ORDERED: ALB18R INH (09:53)
[2018-12-29] MEDS: NAPROXEN 500 MG TAB PO PRN ×2 (10:22→22:12)
--- NOTE | 2018-12-29 11:45 | Antimicrobial Stewardship ---
Antimicrobial Stewardship Significant PMH: Yes (COPD) Support empiric regimen: Yes (Tamiflu) Comment Tamiflu 75 mg po BID x 5 days for treatment of influenza A Determine cumulative duration: Day 3 of treatment Determine standard duration: Treat for a total of 5 days Comment 53 yo F with a PMH significant for COPD who came into the ED with SOB, chills, aches, and headache. Tmax 99.7 WBC wnl Influenza A (+) Chest xray- no acute cardiopulmonary problems LFTs slightly elevated Plan to continue Tamiflu 75 mg po BID for a total of 5 days. Yara Peguero, PharmD, BCOP YARA PEGUERO Dec 29, 2018 11:45
[2018-12-29 12:14] VITALS: BP 130/81
[2018-12-29] MEDS: CALCIUM CARBONATE 500 MG CHEW PO SCH ×2 (12:33→16:32)
[2018-12-29] MEDS: predniSONE 20 MG TAB PO SCH (12:33)
[2018-12-29] MEDS ORDERED: INFLUENZA VIRUS VAC 0.5ML SYR IM ONLY ONE (13:35)
[2018-12-29 16:24] VITALS: BP 142/92
[2018-12-29] MEDS: BENZONATATE 100 MG CAP PO PRN (16:32)
[2018-12-29 19:22] VITALS: BP 160/95
[2018-12-29] MEDS: traZODone HCL 50 MG TAB PO PRN (21:13)
[2018-12-30] MEDS: GUAIFENESIN/DEXTROMETHORPHAN 5 ML PO PRN (02:18)
[2018-12-30 04:10] VITALS: BP 163/85
[2018-12-30] MEDS: ALBUTEROL/IPRATROPIUM 3 ML NEB NEB SCH ×3 (05:21→11:18)
[2018-12-30] MEDS: ACETAMINOPHEN 500 MG TAB PO PRN (07:32)
[2018-12-30] MEDS: BENZONATATE 100 MG CAP PO PRN (07:33)
[2018-12-30 07:38] VITALS: BP 174/95
[2018-12-30 08:38] VITALS: Ht 154.9 cm; Wt 117.9 kg
[2018-12-30] MEDS: OSELTAMIVIR PHOS 75 MG CAP PO SCH (08:41)
[2018-12-30] MEDS: ENOXAPARIN 40 MG/0.4ML SYR SC SCH (08:41)
[2018-12-30] MEDS: predniSONE 20 MG TAB PO SCH (08:41)
[2018-12-30] MEDS: cloNIDine HCL 0.1 MG TAB PO SCH (08:41)
[2018-12-30] MEDS ORDERED: [UNRECOGNIZED DRUG - OTHER] PO ONE (11:30)
[2018-12-30] MEDS: CALCIUM CARBONATE 500 MG CHEW PO SCH (12:29)
[2018-12-30] MEDS ORDERED: INFLUENZA VIRUS VAC 0.5ML SYR IM ONLY ONE (12:30)
[2018-12-30] MEDS ORDERED: ERGO500037 PO (13:28)
[2018-12-30] MEDS ORDERED: CALC600T82 PO (13:28)
--- NOTE | 2018-12-30 13:33 | Hospitalist Progress Note ---
Subjective Progress Notes Subjective She reports still having a cough and feeling weak. Physical Exam Vital Signs Date Time Temp Pulse Resp B/P (MAP) Pulse Ox O2 Delivery O2 Flow Rate FiO2 12/30/18 11:27 75 18 12/30/18 11:19 92 Nasal Cannula 2.0 12/30/18 07:38 97.5 174/95 (121) Intake and Output 12/30/18 06:59 Intake Total 1880 ml Balance 1880 ml Intake Oral 1880 ml # Voids 7 # Bowel Movements 2 General Appearance: Alert, Awake, No Acute Distress Cardiovascular: Regular Rate and Rhythm Respiratory: Other (Exp coarse BS bilaterally, but moving air well and breathing comfortably) Extremities: No Edema Result Diagram: 12/28/1807 12/29/18 0544 Assessment and Plan Problems: (1) Influenza A Status: Acute Assessment & Plan: She presented with 24 hours of fevers, chills, cough, vomiting and diarrhea. She did test positive for influenza A. She has been started on Tamiflu. (2) COPD exacerbation Status: Acute Assessment & Plan: Secondary to influenza. She was placed on a prednisone taper and albuterol. She is at her baseline O2 requirement and breathing comfortably. (3) Hypocalcemia Status: Acute Assessment & Plan: Secondary to a very low vitamin D 25. She has been given a dose of Ergocalciferol 50,000 IU today. She is to take that for 6-8 weeks on a weekly basis and then take 800mg daily. Also, she should be on calcium carbonate 600mg twice daily to replete her stores. She will need follow up. (4) Hypokalemia Status: Acute Assessment & Plan: Resolved with replacement therapy. (5) Hypomagnesemia Status: Acute Assessment & Plan: Resolved with supplementation. (6) HTN (hypertension) Status: Chronic Assessment & Plan: She is on chronic treatment with clonidine and hydrochlorothiazide. Exam Sepsis Risk: No Definite Risk SABAS SAEED MD Dec 30, 2018 13:33
== END 2018-12-30 16:00 | disposition home or self-care (01) | DRG 194 ==
LOC: ER 11:32 → MED 13:27
PROVIDERS: ADMIT Internal Medicine; ATTEND Internal Medicine
DX: J10.1 Influenza due to other identified influenza virus with other respiratory manifestations (principal); J44.1 Chronic obstructive pulmonary disease with (acute) exacerbation; E83.42 Hypomagnesemia; E83.51 Hypocalcemia; I10 Essential (primary) hypertension; G89.29 Other chronic pain; F41.9 Anxiety disorder, unspecified; Z90.49 Acquired absence of other specified parts of digestive tract; Z23 Encounter for immunization
CPT/HCPCS: 36415; 71046; 82040; 82247; 82306; 82310; 82330; 82374; 82435; 82565; 82947; 83735; 83880; 83970; 84075; 84100; 84132; 84155; 84295; 84450; 84460; 84484; 84520; 85025; 87502; 90674; 93005; 94640; 94667; 94668; 96365; 96375; 99285; J1650; J2060; J2930; J3475; J7050; J7512; J7613

== ENCOUNTER 2019-01-15 19:06 | Emergency (ER) | payer MEDICAID ==
[2018-12-30 08:38] VITALS: BMI 49.1
[~2019-01-15 19:06] MED LIST changes: +ALB18R INH; +CALC600T82 PO; +ERGO500037 PO; +OSE75 PO; +PRED-1 PO
--- NOTE | 2019-01-15 19:14 | ER Report ---
History and Physical Time Seen By MD: 19:14 HPI/ROS CHIEF COMPLAINT: Depression, alcohol abuse HISTORY OF PRESENT ILLNESS: Patient is a 53-year-old female here with complaints of depression, alcohol abuse. Patient admits to drinking a pint of alcohol every night. Patient reports worsening depression, significant life stressors including her current living situation. Patient takes clonidine and trazodone reports having a prior admission to behavioral health services. Denies suicidal or homicidal ideations at this time. REVIEW OF SYSTEMS: Constitutional: No fever, no chills. Eyes: No discharge. ENT: No sore throat. Cardiovascular: No chest pain, no palpitations. Respiratory: No cough, no shortness of breath. Gastrointestinal: No abdominal pain, no vomiting. Genitourinary: No hematuria. Musculoskeletal: No back pain. Skin: No rashes. Neurological: No headache. Psychiatric: Depression, anxiety Allergies: Coded Allergies: Phenothiazines (Verified Allergy, Unknown, 12/30/18) Home Meds Active Scripts Calcium Carbonate (CALCIUM CARBONATE) 600 Mg Tablet, 600 MG PO BID, #60 Prov:SABAS SAEED MD 12/30/18 Ergocalciferol (Vitamin D2) (VITAMIN D2) 50,000 Unit Capsule, 98056 UNIT PO QWEEK, #4 CAPSULE Prov:SABAS SAEED MD 12/30/18 Albuterol Sulfate (VENTOLIN HFA) 18 Gm Inh, 2 PUFF INH Q4-6H PRN for WHEEZING, #1 INH Prov:SUMMER VERDE DO 12/29/18 Clonidine Hcl (CLONIDINE HCL) 0.1 Mg Tablet, 0.1 MG PO BID PRN for HYPERTENSION, #14 TAB Prov:JUAN ÁLVAREZ 11/10/18 Trazodone Hcl (TRAZODONE HCL) 50 Mg Tablet, 50 MG PO QHS PRN for INSOMNIA, #14 TAB Prov:JUAN ÁLVAREZ 11/10/18 Reported Medications Hydrochlorothiazide (HYDROCHLOROTHIAZIDE) 25 Mg Tablet, 1 TAB PO QDAY, TAB 11/10/18 Trazodone Hcl (TRAZODONE HCL) 50 Mg Tablet, 50 MG PO TID 11/10/18 Discontinued Scripts Prednisone 10 Mg Tab (PREDNISONE 10 MG TAB) 10 Mg Tablet, 10 MG PO DIRECTED, #30 TAB Take 4 tab daily x 3 days, then 3 tab daily x 3 days, then 2 tabs daily x 3 day, then 1 tab daily x 3 days. Prov:SUMMER VERDE DO 12/29/18 Oseltamivir Phosphate (TAMIFLU) 75 Mg Cap, 75 MG PO BID, #4 CAP Prov:SUMMER VERDE DO 12/29/18 Hx Smoking: Yes Smoking Status: Former Smoker Exposure to Second Hand Smoke?: Yes Hx Substance Use Disorder: No Hx Alcohol Use: Yes Constitutional Vital Sign - Last 24 Hours 01/15/19 01/15/19 01/15/19 01/15/19 19:18 21:11 21:11 21:18 Temp 98.3 Pulse 110 101 106 Resp 20 20 20 B/P (MAP) 135/117 Pulse Ox 93 95 O2 Delivery Nasal Cannula Nasal Cannula O2 Flow Rate 3.0 Physical Exam General Appearance: The patient is alert, has no immediate need for airway protection and no signs of toxicity. Tearful, intoxicated, slurring words Eyes: Pupils equal and round no pallor or injection. ENT, Mouth: Mucous membranes are moist. Respiratory: There are no retractions, lungs are clear to auscultation. Cardiovascular: Regular rate and rhythm. Gastrointestinal: Abdomen is soft and non tender, no masses, bowel sounds no rmal. Neurological: No focal neurological findings + slurring words, intoxicated Skin: Warm and dry, no rashes. Musculoskeletal: Neck is supple non tender. Extremities are nontender, nonswollen and have full range of motion. Psychiatric: Tearful, anxious appearing, denies suicidal or homicidal ideations DIFFERENTIAL DIAGNOSIS: After history and physical exam differential diagnosis was considered for alcohol intoxication, depression, anxiety, polysubstance abuse Medical Decision Making Data Points Result Diagram: 01/15/19201501/15/192015 Laboratory Hematology Test 01/15/19 20:02 01/15/19 20:16 Urine Color Yellow Urine Clarity Clear Urine pH 6.0 pH (4.8-9.5) Urine Specific Recluse 1.012 Urine Protein 30 mg/dL (NEGATIVE) Urine Glucose (UA) Negative mg/dL (NEGATIVE) Urine Ketones Trace mg/dL (NEGATIVE) Urine Blood Small (NEGATIVE) Urine Nitrite Negative (NEGATIVE) Urine Bilirubin Negative (NEGATIVE) Urine Urobilinogen 4.0 mg/dL (0.2-1.9) Urine Leukocyte Esterase Negative (NEGATIVE) Urine RBC <1 /HPF (0-2/HPF) Urine WBC 3 /HPF (0-5/HPF) Urine Squamous Epithelial Cells Many /LPF (</=FEW) Urine Bacteria Negative /HPF (NONE-FEW) Urine Hyaline Casts Few /LPF (NONE-FEW) Urine Mucus None /HPF (NONE-FEW) Urine HCG, Qualitative Negative (NEGATIVE) Urine Opiates Screen Negative Urine Barbiturates Screen Negative Ur Tricyclic Antidepressants Screen Negative Urine Phencyclidine Screen Negative Urine Amphetamines Screen Negative Urine Benzodiazepines Screen Negative Urine Cocaine Screen Negative Urine Cannabinoids Screen Negative Red Blood Count 4.29 M/uL (4.17-5.56) Mean Corpuscular Volume 98.4 fL (80.0-96.0) Mean Corpuscular Hemoglobin 33.2 pg (26.0-33.0) Mean Corpuscular Hemoglobin Concent 33.8 g/dL (32.0-36.0) Red Cell Distribution Width 15.6 % (11.5-14.5) Mean Platelet Volume 7.7 fL (7.2-11.1) Neutrophils (%) (Auto) 58.7 % (39.4-72.5) Lymphocytes (%) (Auto) 35.1 % (17.6-49.6) Monocytes (%) (Auto) 5.5 % (4.1-12.4) Eosinophils (%) (Auto) 0.4 % (0.4-6.7) Basophils (%) (Auto) 0.3 % (0.3-1.4) Nucleated RBC Relative Count (auto) 0.1 /100WBC Neutrophils # (Auto) 3.8 K/uL (2.0-7.4) Lymphocytes # (Auto) 2.3 K/uL (1.3-3.6) Monocytes # (Auto) 0.4 K/uL (0.3-1.0) Eosinophils # (Auto) 0.0 K/uL (0.0-0.5) Basophils # (Auto) 0.0 K/uL (0.0-0.1) Nucleated RBC Absolute Count (auto) 0.00 K/uL Sodium Level 138 mmol/L (137-145) Potassium Level 3.5 mmol/L (3.5-5.0) Chloride Level 97 mmol/L (98-107) Carbon Dioxide Level 25 mmol/L (22-31) Blood Urea Nitrogen 7 mg/dl (7-18) Creatinine 0.70 mg/dl (0.52-1.04) Glomerular Filtration Rate Calc > 60.0 Random Glucose 107 mg/dl (75-110) Calcium Level 8.2 mg/dl (8.4-10.2) Magnesium Level 1.0 mg/dl (1.7-2.2) Total Bilirubin 0.9 mg/dl (0.2-1.3) Aspartate Amino Transf (AST/SGOT) 148 U/L (0-35) Alanine Aminotransferase (ALT/SGPT) 110 U/L (0-56) Alkaline Phosphatase 81 U/L (0-126) Total Protein 6.3 g/dl (6.3-8.2) Albumin 4.0 g/dl (3.5-5.0) Salicylates Level < 10 mg/L Salicylate Last Dose Date unknown Acetaminophen Level < 10 ug/ml Serum Alcohol 136 mg/dl Chemistry Test 01/15/19 20:02 01/15/19 20:16 Urine Color Yellow Urine Clarity Clear Urine pH 6.0 pH (4.8-9.5) Urine Specific Recluse 1.012 Urine Protein 30 mg/dL (NEGATIVE) Urine Glucose (UA) Negative mg/dL (NEGATIVE) Urine Ketones Trace mg/dL (NEGATIVE) Urine Blood Small (NEGATIVE) Urine Nitrite Negative (NEGATIVE) Urine Bilirubin Negative (NEGATIVE) Urine Urobilinogen 4.0 mg/dL (0.2-1.9) Urine Leukocyte Esterase Negative (NEGATIVE) Urine RBC <1 /HPF (0-2/HPF) Urine WBC 3 /HPF (0-5/HPF) Urine Squamous Epithelial Cells Many /LPF (</=FEW) Urine Bacteria Negative /HPF (NONE-FEW) Urine Hyaline Casts Few /LPF (NONE-FEW) Urine Mucus None /HPF (NONE-FEW) Urine HCG, Qualitative Negative (NEGATIVE) Urine Opiates Screen Negative Urine Barbiturates Screen Negative Ur Tricyclic Antidepressants Screen Negative Urine Phencyclidine Screen Negative Urine Amphetamines Screen Negative Urine Benzodiazepines Screen Negative Urine Cocaine Screen Negative Urine Cannabinoids Screen Negative White Blood Count 6.5 k/uL (4.5-11.0) Red Blood Count 4.29 M/uL (4.17-5.56) Hemoglobin 14.3 g/dL (12.0-16.0) Hematocrit 42.2 % (34.0-47.0) Mean Corpuscular Volume 98.4 fL (80.0-96.0) Mean Corpuscular Hemoglobin 33.2 pg (26.0-33.0) Mean Corpuscular Hemoglobin Concent 33.8 g/dL (32.0-36.0) Red Cell Distribution Width 15.6 % (11.5-14.5) Platelet Count 219 K/uL (150-450) Mean Platelet Volume 7.7 fL (7.2-11.1) Neutrophils (%) (Auto) 58.7 % (39.4-72.5) Lymphocytes (%) (Auto) 35.1 % (17.6-49.6) Monocytes (%) (Auto) 5.5 % (4.1-12.4) Eosinophils (%) (Auto) 0.4 % (0.4-6.7) Basophils (%) (Auto) 0.3 % (0.3-1.4) Nucleated RBC Relative Count (auto) 0.1 /100WBC Neutrophils # (Auto) 3.8 K/uL (2.0-7.4) Lymphocytes # (Auto) 2.3 K/uL (1.3-3.6) Monocytes # (Auto) 0.4 K/uL (0.3-1.0) Eosinophils # (Auto) 0.0 K/uL (0.0-0.5) Basophils # (Auto) 0.0 K/uL (0.0-0.1) Nucleated RBC Absolute Count (auto) 0.00 K/uL Glomerular Filtration Rate Calc > 60.0 Calcium Level 8.2 mg/dl (8.4-10.2) Magnesium Level 1.0 mg/dl (1.7-2.2) Total Bilirubin 0.9 mg/dl (0.2-1.3) Aspartate Amino Transf (AST/SGOT) 148 U/L (0-35) Alanine Aminotransferase (ALT/SGPT) 110 U/L (0-56) Alkaline Phosphatase 81 U/L (0-126) Total Protein 6.3 g/dl (6.3-8.2) Albumin 4.0 g/dl (3.5-5.0) Salicylates Level < 10 mg/L Salicylate Last Dose Date unknown Acetaminophen Level < 10 ug/ml Serum Alcohol 136 mg/dl Toxicology Test 01/15/19 20:02 01/15/19 20:16 Urine Opiates Screen Negative Urine Barbiturates Screen Negative Ur Tricyclic Antidepressants Screen Negative Urine Phencyclidine Screen Negative Urine Amphetamines Screen Negative Urine Benzodiazepines Screen Negative Urine Cocaine Screen Negative Urine Cannabinoids Screen Negative Salicylates Level < 10 mg/L Salicylate Last Dose Date unknown Acetaminophen Level < 10 ug/ml Serum Alcohol 136 mg/dl Urinalysis Test 01/15/19 20:02 Urine Color Yellow Urine Clarity Clear Urine pH 6.0 pH (4.8-9.5) Urine Specific Recluse 1.012 Urine Protein 30 mg/dL (NEGATIVE) Urine Glucose (UA) Negative mg/dL (NEGATIVE) Urine Ketones Trace mg/dL (NEGATIVE) Urine Blood Small (NEGATIVE) Urine Nitrite Negative (NEGATIVE) Urine Bilirubin Negative (NEGATIVE) Urine Urobilinogen 4.0 mg/dL (0.2-1.9) Urine Leukocyte Esterase Negative (NEGATIVE) Urine RBC <1 /HPF (0-2/HPF) Urine WBC 3 /HPF (0-5/HPF) Urine Squamous Epithelial Cells Many /LPF (</=FEW) Urine Bacteria Negative /HPF (NONE-FEW) Urine Hyaline Casts Few /LPF (NONE-FEW) Urine Mucus None /HPF (NONE-FEW) Urine HCG, Qualitative Negative (NEGATIVE) ED Course/Re-evaluation ED Course Patient is a 53-year-old female here with complaints of depression, anxiety, alcohol abuse. Patient reports that she is here seeking help for her alcohol abuse as well as her depression. Patient currently takes clonidine, trazodone. I discussed the patient with Dr. Torres who accepted the patient to psychiatric service. Patient was stable at time of admission. Alcohol 136. Magnesium was found to be 1.0, patient was given oral repletion, thiamine, folic acid, Ativan. Decision to Disposition Date: Jan 15, 2019 Decision to Disposition Time: 21:09 Depart Departure Latest Vital Signs Vital Signs Date Time Temp Pulse Resp B/P (MAP) Pulse Ox O2 Delivery O2 Flow Rate FiO2 01/15/19 21:18 106 20 01/15/19 21:11 95 Nasal Cannula 3.0 01/15/19 19:18 98.3 135/117 Impression: Primary Impression: Depression Additional Impression: Alcohol abuse Condition: Improved [facility]position[facility] Problem Qualifiers LUCAS BELTRE DO Jan 15, 2019 19:14
[2019-01-15 20:26] LABS: PLATELET COUNT, AUTOMATED 219 K/uL (150-450)
[2019-01-15] MEDS ORDERED: THIAMINE HCL(*) 200 MG/2 ML IN 100 MG, FOLIC ACID(*) 50 MG/10 ML INJ 1 MG, MULTIVITAMIN... IV ONE (20:50)
[2019-01-15] MEDS ORDERED: LORazepam 1 MG TAB PO ONE (20:55)
[2019-01-15] MEDS ORDERED: MAGNESIUM OXIDE 400 MG TAB PO ONE (20:55)
[2019-01-15] MEDS ORDERED: FOLIC ACID 1 MG TAB PO ONE (20:55)
[2019-01-15] MEDS ORDERED: ALBUTEROL/IPRATROPIUM 3 ML NEB NEB ONE (20:55)
[2019-01-15] MEDS ORDERED: THIAMINE HCL 100 MG TAB PO ONE (20:55)
[2019-01-15 21:33] VITALS: BP 151/97
[2019-01-16] MEDS ORDERED: CALC600T82 PO (16:03)
== END 2019-01-15 22:00 ==
LOC: ER 19:17
DX: F32.9 Major depressive disorder, single episode, unspecified (principal); F10.120 Alcohol abuse with intoxication, uncomplicated; Y90.6 Blood alcohol level of 120-199 mg/100 ml
CPT/HCPCS: 36415; 80305; 81001; 81025; 83735; 84443; 85025; 99284; G0480; J7620; 80320; 80329; 82040; 82247; 82310; 82374; 82435; 82565; 82947; 84075; 84132; 84155; 84295; 84450; 84460; 84520

== ENCOUNTER 2019-01-15 21:38 | Inpatient (IN) | payer MEDICAID ==
[2018-12-30 08:38] VITALS: Ht 154.9 cm; Wt 103.9 kg
[~2019-01-15] VITALS: Ht 154.9 cm; Wt 103.9 kg
[2019-01-15 22:10] VITALS: BP 140/104
[2019-01-15] MEDS ORDERED: NICOTINE CARTRIDGE 1 EA PO PRN (22:55)
[2019-01-15] MEDS ORDERED: ACETAMINOPHEN 325 MG TAB PO PRN (22:55)
[2019-01-15] MEDS ORDERED: DIAZEPAM 10 MG TAB PO PRN ×2 (22:55)
[2019-01-15] MEDS ORDERED: MAG HYD/AL HYD/SIMETH 30ML UDC PO PRN (22:55)
[2019-01-15] MEDS ORDERED: NICOTINE INH SYSTEM 10 MG/INH INH PRN (22:55)
[2019-01-15] MEDS: traZODone HCL 50 MG TAB PO PRN (23:33)
[2019-01-16 02:00] VITALS: BP 140/92
[2019-01-16 06:08] VITALS: BP 145/95
[2019-01-16] MEDS: THIAMINE HCL 100 MG TAB PO SCH (08:15)
[2019-01-16] MEDS: MULTIVITAMINS TAB PO SCH (08:15)
[2019-01-16] MEDS: FOLIC ACID 1 MG TAB PO SCH (08:15)
[2019-01-16] MEDS: HYDROCHLOROTHIAZIDE 25 MG TAB PO SCH (08:15)
[2019-01-16] MEDS: cloNIDine HCL 0.1 MG TAB PO PRN ×2 (11:32→20:20)
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
[2019-01-16 15:55] VITALS: BP 128/88
[2019-01-16] MEDS ORDERED: CALC600T82 PO (16:03)
[2019-01-16] MEDS: traZODone HCL 50 MG TAB PO PRN (20:20)
[2019-01-17 05:37] VITALS: BP 120/63
[2019-01-17 06:28] LABS: PLATELET COUNT, AUTOMATED 144 K/uL (150-450)
[2019-01-17] MEDS ORDERED: MAGNESIUM OXIDE 400 MG TAB PO ONE (07:50)
[2019-01-17] MEDS: FOLIC ACID 1 MG TAB PO SCH (08:30)
[2019-01-17] MEDS: HYDROCHLOROTHIAZIDE 25 MG TAB PO SCH (08:30)
[2019-01-17] MEDS: MULTIVITAMINS TAB PO SCH (08:30)
[2019-01-17] MEDS: FLUoxetine HCL 20 MG CAP PO SCH (08:30)
[2019-01-17] MEDS: THIAMINE HCL 100 MG TAB PO SCH (08:30)
[2019-01-17] MEDS: cloNIDine HCL 0.1 MG TAB PO PRN ×2 (08:30→20:44)
[2019-01-17] MEDS: ALBUTEROL 8 GM INHALER INH PRN ×2 (11:16→20:40)
--- NOTE | 2019-01-17 11:19 | BHS Progress Note ---
[facility] - Subjective Progress Notes Subjective Reports mood as "up and down. I just want to feel some peace." She reports passive suicidal thoughts without thoughts of harming herself. She does look forward to March 11 when she will be receiving payment from social security. She has received her first dose of Prozac this morning. She reports feeling respira tory illness today. Suicidal Ideation: Resolving Homicidal Ideation: None [facility] - Objective Physical Exam Vital Signs Vital Signs Date Time Temp Pulse Resp B/P (MAP) Pulse Ox O2 Delivery O2 Flow Rate FiO2 01/17/19 05:37 97.4 88 120/63 (82) 93 Nasal Cannula 3.5 01/16/19 15:55 16 Muscle Strength and Tone: WNL Gait and Station: Steady [facility] Medications Reviewed: Side Effects, Benefits of Medication, Risks Allergies Reviewed: Yes Mental Status Exam General Appearance: Good Eye Contact, Cooperative, Polite, Good Interaction, Tearful Speech: Clear, Spontaneous, Normal Rate, Normal Rhythm, Normal Volume, Normal Tone Mood: Dysthmic/Depressed Affect: Sad, Tearful Thought Process: Organized, Logical, Goal Directed; No Loose Associations, No Flight of Ideas Thought Content: Suicidal Ideation; No Homicidal Ideation, No Delusions, No Auditory Halllucinations, No Visual Hallucinations, No Thought Broadcasting, No Ideas of Reference Sensorium: Clear Cognition: Alert & Oriented-Person, Alert & Oriented-Place, Alert & Oriented- Time, Bvqoc-Jsizqinh-Slkrcdmfk Memory: Immediate, Recent, Remote (grossly intact) Intelligence: Average Insight Judgment: Fair Result Diagram: 01/17/19 0556 01/17/19 0556 [facility] Assessment and Plan Eyiq-rk-Pmuu Encounter Date: Jan 17, 2019 Achb-gs-Dfvn Encounter Time: 09:00 [facility] Plan: Admit to Unit, Necessary Precautions, Individual/Group Therapy, Admin/Titrate Meds, Educate Patient Tobacco Medications: Started Multpiple Antipsychotics Used: No Problems: (1) Alcohol abuse Status: Acute (2) Depression Status: Acute Condition Patient reports continued feelings of being overwhelmed, depressed, with passive suicidal thoughts. Continue Prozac. She received her first dose today. She plans to have her daughter involved in the treatment team meeting tomorrow morning for support. MITCHELL LARIOS NP Jan 17, 2019 11:19
[2019-01-17 12:45] VITALS: BP 118/72
[2019-01-17] MEDS: traZODone HCL 50 MG TAB PO PRN (20:39)
[2019-01-17 20:56] VITALS: BP 121/76
[2019-01-18 04:08] VITALS: BP 140/85
[2019-01-18] MEDS: THIAMINE HCL 100 MG TAB PO SCH (08:09)
[2019-01-18] MEDS: cloNIDine HCL 0.1 MG TAB PO PRN ×2 (08:09→20:36)
[2019-01-18] MEDS: FLUoxetine HCL 20 MG CAP PO SCH (08:09)
[2019-01-18] MEDS: FOLIC ACID 1 MG TAB PO SCH (08:10)
[2019-01-18] MEDS: MULTIVITAMINS TAB PO SCH (08:10)
[2019-01-18] MEDS: HYDROCHLOROTHIAZIDE 25 MG TAB PO SCH (08:10)
[2019-01-18] MEDS ORDERED: IBUPROFEN 200 MG TAB PO PRN (11:00)
[2019-01-18] MEDS: MAGNESIUM OXIDE 400 MG TAB PO SCH ×2 (11:32→20:36)
[2019-01-18 13:02] VITALS: BP 107/84
--- NOTE | 2019-01-18 14:25 | BHS Progress Note ---
[facility] - Subjective Progress Notes Subjective Pt sen in treatment team with her daughter on the speaker phone. Pt still depressed, tearful, overwhelmed. Rates depression at 9/10. Still has pasive wishes though not active SI. Says she cannot stand the stress of possibly going home if the roommates are still there. Daughter tried to encourage her th at they are indeed packing to move out, but pt remained tearful and regressed. Pt did tolerated prozac first dose yesterday. Denies SE's. Sleep was interrupted but adequate. Denies any alcohol withdrawal sx's. Continue current tx plan. Will replace Mg again today at 400 mg BID and recheck labs in am. Suicidal Ideation: None Homicidal Ideation: None [facility] - Objective Physical Exam Vital Signs Vital Signs 01/18/19 01/18/19 04:08 13:02 Temp 98.2 Pulse 85 Resp 16 B/P (MAP) 107/84 (92) Pulse Ox 95 O2 Delivery Nasal Cannula O2 Flow Rate 3.0 Muscle Strength and Tone: WNL Gait and Station: Steady [facility] Medications Reviewed: Side Effects, Benefits of Medication, Risks Allergies Reviewed: Yes Mental Status Exam General Appearance: Good Eye Contact, Cooperative, Polite, Good Interaction, Tearful Speech: Clear, Spontaneous, Normal Rate, Normal Rhythm, Normal Volume, Normal Tone Mood: Dysthmic/Depressed Affect: Sad, Tearful Thought Process: Organized, Logical, Goal Directed; No Loose Associations, No Flight of Ideas Thought Content: Suicidal Ideation; No Homicidal Ideation, No Delusions, No Auditory Halllucinations, No Visual Hallucinations, No Thought Broadcasting, No Ideas of Reference Sensorium: Clear Cognition: Alert & Oriented-Person, Alert & Oriented-Place, Alert & Oriented- Time, Zjhlz-Tvaugphs-Qbqbccfxt Memory: Immediate, Recent, Remote (grossly intact) Intelligence: Average Insight Judgment: Fair Result Diagram: 01/17/19 0556 01/18/19543 Lab Item Value Date Time Sodium Level 131 mmol/L L 01/18/19543 Potassium Level 3.7 mmol/L 01/18/19543 Chloride Level 90 mmol/L L 01/18/19543 Carbon Dioxide Level 37 mmol/L H 01/18/19543 Blood Urea Nitrogen 9 mg/dl 01/18/19543 Creatinine 0.80 mg/dl 01/18/19543 Glomerular Filtration Rate Calc > 60.0 01/18/1944 Random Glucose 84 mg/dl 01/18/1944 Calcium Level 8.1 mg/dl L 01/18/1944 Magnesium Level 1.1 mg/dl L 01/18/19 0544 [facility] Assessment and Plan Bloq-zr-Aomg Encounter Date: Jan 18, 2019 Gpgy-lc-Ktsx Encounter Time: 10:00 [facility] Plan: Admit to Unit, Necessary Precautions, Individual/Group Therapy, Admin/Titrate Meds, Educate Patient Tobacco Medications: Started Multpiple Antipsychotics Used: No Problems: (1) Alcohol use disorder, mild, abuse (2) Persistent depressive disorder CATHERINE KAISER MD Jan 18, 2019 14:25
[2019-01-18] MEDS: traZODone HCL 50 MG TAB PO PRN (20:36)
[2019-01-18 21:31] VITALS: BP 126/88
[2019-01-19 06:22] VITALS: BP 128/60
[2019-01-19] MEDS: FOLIC ACID 1 MG TAB PO SCH (08:25)
[2019-01-19] MEDS: MAGNESIUM OXIDE 400 MG TAB PO SCH ×2 (08:25→20:53)
[2019-01-19] MEDS: THIAMINE HCL 100 MG TAB PO SCH (08:25)
[2019-01-19] MEDS: HYDROCHLOROTHIAZIDE 25 MG TAB PO SCH (08:25)
[2019-01-19] MEDS: FLUoxetine HCL 20 MG CAP PO SCH (08:25)
[2019-01-19] MEDS: MULTIVITAMINS TAB PO SCH (08:25)
[2019-01-19] MEDS: cloNIDine HCL 0.1 MG TAB PO PRN ×2 (08:29→20:53)
[2019-01-19] MEDS: NYSTATIN 100,000 U/GM PWD 15GM TP SCH ×2 (10:07→20:53)
[2019-01-19] MEDS: traZODone HCL 50 MG TAB PO PRN (20:53)
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
[2019-01-19 21:15] VITALS: BP 122/94
[2019-01-19] MEDS: ALBUTEROL 8 GM INHALER INH PRN (22:03)
[2019-01-20 06:08] VITALS: BP 118/66
[2019-01-20] MEDS: ALBUTEROL 8 GM INHALER INH PRN (07:49)
[2019-01-20] MEDS: HYDROCHLOROTHIAZIDE 25 MG TAB PO SCH (08:15)
[2019-01-20] MEDS: MAGNESIUM OXIDE 400 MG TAB PO SCH ×2 (08:15→20:38)
[2019-01-20] MEDS: MULTIVITAMINS TAB PO SCH (08:15)
[2019-01-20] MEDS: FLUoxetine HCL 20 MG CAP PO SCH (08:15)
[2019-01-20] MEDS: THIAMINE HCL 100 MG TAB PO SCH (08:15)
[2019-01-20] MEDS: FOLIC ACID 1 MG TAB PO SCH (08:16)
[2019-01-20] MEDS: cloNIDine HCL 0.1 MG TAB PO PRN ×2 (08:19→20:38)
--- NOTE | 2019-01-20 13:09 | BHS Progress Note ---
[facility] - Subjective Progress Notes Subjective Pt seen in treatment team meeting with her daughter on the phone. Pt reporting worse depression today at 10/10, with passive wishes, but no active SI. Pt tearful, regressed, overwhelmed. She c/o side effects from Prozac, feels numb, blunted, "like in a fog," can't concentrate. Says in past she took zoloft which she tolerated well. She also c/o feeling a lot of daytime sedation. c/o "swollen ankles though on exam they are fine, no edema-- she says they swell later in the day after she has been up for a while-- she is worried that the prozac is causing it. We will change antidepressant to zoloft -- in hopes that it is better tolerated. She is so regressed and somatic that she will just bounce back if we discharge in this condition. Daughter assures us the roommates will be gone on Friday-- they are delayed from moving today to [facility] roads are closed. We will place a continuous pulse ox monitor tonight to r/o sleep apnea. Check chem panel in am. Tentative discharge Friday. Suicidal Ideation: None Homicidal Ideation: None [facility] - Objective Physical Exam Vital Signs Vital Signs 01/20/19 06:08 Temp 98.2 Pulse 61 Resp 15 B/P (MAP) 118/66 (83) Pulse Ox 95 O2 Delivery Nasal Cannula O2 Flow Rate 2.0 Muscle Strength and Tone: WNL Gait and Station: Steady [facility] Medications Reviewed: Side Effects, Benefits of Medication, Risks Allergies Reviewed: Yes Mental Status Exam General Appearance: Cooperative, Polite, Good Interaction, Tearful Speech: Normal Rate, Normal Rhythm, Delayed Mood: Dysthmic/Depressed Affect: Sad, Tearful Thought Process: Organized, Logical, Goal Directed; No Loose Associations, No Flight of Ideas Thought Content: No Suicidal Ideation, No Homicidal Ideation, No Delusions, No Auditory Halllucinations, No Visual Hallucinations, No Thought Broadcasting, No Ideas of Reference, No Obsessions, No Compulsions, No Other Sensorium: Clear Cognition: Alert & Oriented-Person, Alert & Oriented-Place, Alert & Oriented- Time, Piflr-Hrgvumrv-Jgvqtfnhn Memory: Immediate, Recent, Remote (grossly intact) Intelligence: Average Insight Judgment: Fair Result Diagram: 01/17/19 0556 01/19/19 0555 [facility] Assessment and Plan Hile-pa-Pcim Encounter Date: Jan 20, 2019 Zaqj-[id number]-Imgd Encounter Time: 09:00 [facility] Plan: Necessary Precautions, Individual/Group Therapy, Admin/Titrate Meds, Educate Patient Tobacco Medications: Started Multpiple Antipsychotics Used: No Problems: (1) Alcohol use disorder, mild, abuse (2) Persistent depressive disorder CATHERINE KAISER MD Jan 20, 2019 13:09
[2019-01-20 13:14] VITALS: BP 105/76
[2019-01-20] MEDS: traZODone HCL 50 MG TAB PO PRN (20:41)
[2019-01-20] MEDS: NYSTATIN 100,000 U/GM PWD 15GM TP SCH (21:00)
[2019-01-20 22:25] VITALS: BP 120/80
[2019-01-21 06:42] VITALS: BP 100/63
[2019-01-21] MEDS: THIAMINE HCL 100 MG TAB PO SCH (08:25)
[2019-01-21] MEDS: MAGNESIUM OXIDE 400 MG TAB PO SCH ×2 (08:26→21:49)
[2019-01-21] MEDS: HYDROCHLOROTHIAZIDE 25 MG TAB PO SCH (08:27)
[2019-01-21] MEDS: FOLIC ACID 1 MG TAB PO SCH (08:27)
[2019-01-21] MEDS: MULTIVITAMINS TAB PO SCH (08:27)
[2019-01-21] MEDS: NYSTATIN 100,000 U/GM PWD 15GM TP SCH ×2 (09:00→21:00)
[2019-01-21] MEDS ORDERED: SERTRALINE HCL 50 MG TAB PO SCH (09:00)
[2019-01-21 12:57] VITALS: BP 112/90
[2019-01-21] MEDS: cloNIDine HCL 0.1 MG TAB PO PRN (13:47)
--- NOTE | 2019-01-21 15:54 | BHS Progress Note ---
[facility] - Subjective Progress Notes Subjective Pt seen in conference room with team. Pt is feeling "a little better" today with depression at 7/10, still passive wishes, but no SI. She seems a bit less regressed, laughed appropriately once. So far is tolerating first dose of zoloft well. Labs a bit better today (below). Will have team meeting tomorrow with daughter present and tentative discharge tomorrow. Suicidal Ideation: None Homicidal Ideation: None [facility] - Objective Physical Exam Vital Signs Vital Signs 01/21/19 12:57 Temp 97.5 Pulse 89 Resp 20 B/P (MAP) 112/90 (97) Pulse Ox 93 O2 Delivery Nasal Cannula O2 Flow Rate 2.0 Muscle Strength and Tone: WNL Gait and Station: Steady [facility] Medications Reviewed: Side Effects, Benefits of Medication, Risks Allergies Reviewed: Yes Mental Status Exam General Appearance: Cooperative, Polite, Good Interaction Speech: Normal Rate, Normal Rhythm, Delayed Mood: Dysthmic/Depressed Affect: Calm, Sad (overall, did laugh once (!)) Thought Process: Organized, Logical, Goal Directed; No Loose Associations, No Flight of Ideas Thought Content: No Suicidal Ideation, No Homicidal Ideation, No Delusions, No Auditory Halllucinations, No Visual Hallucinations, No Thought Broadcasting, No Ideas of Reference, No Obsessions, No Compulsions, No Other Sensorium: Clear Cognition: Alert & Oriented-Person, Alert & Oriented-Place, Alert & Oriented- Time, Dvctd-Tncfzoby-Yjhuminfn Memory: Immediate, Recent, Remote (grossly intact) Intelligence: Average Insight Judgment: Fair Result Diagram: 01/17/19 0556 01/21/19 0632 [facility] Assessment and Plan Trfq-tp-Sgyj Encounter Date: Jan 21, 2019 Ygnm-[id number]-Xdkd Encounter Time: 10:30 [facility] Plan: Necessary Precautions, Individual/Group Therapy, Admin/Titrate Meds, Educate Patient Tobacco Medications: Started Multpiple Antipsychotics Used: No Problems: (1) Alcohol use disorder, mild, abuse (2) Persistent depressive disorder CATHERINE KAISER MD Jan 21, 2019 15:54
[2019-01-21] MEDS: traZODone HCL 50 MG TAB PO PRN (21:49)
[2019-01-21] MEDS: ALBUTEROL 8 GM INHALER INH PRN (21:49)
[2019-01-21 22:27] VITALS: BP 109/67
[2019-01-22 06:24] VITALS: BP 112/59
[2019-01-22 08:05] VITALS: BP 102/68
[2019-01-22] MEDS: NYSTATIN 100,000 U/GM PWD 15GM TP SCH (08:11)
[2019-01-22] MEDS: THIAMINE HCL 100 MG TAB PO SCH (08:11)
[2019-01-22] MEDS: HYDROCHLOROTHIAZIDE 25 MG TAB PO SCH (08:11)
[2019-01-22] MEDS: FOLIC ACID 1 MG TAB PO SCH (08:11)
[2019-01-22] MEDS: MAGNESIUM OXIDE 400 MG TAB PO SCH (08:11)
[2019-01-22] MEDS: MULTIVITAMINS TAB PO SCH (08:11)
[2019-01-22] MEDS ORDERED: hydrOXYzine PAMOATE 25 MG CAP PO ONE (08:30)
[2019-01-22] MEDS ORDERED: SERTRALINE HCL 50 MG TAB PO SCH (09:00)
[2019-01-22] MEDS: ALBUTEROL 8 GM INHALER INH PRN (09:13)
[2019-01-22] MEDS ORDERED: NYST15PO4 TP ×2 (11:29→11:30)
[2019-01-22] MEDS ORDERED: SERT-173 PO (11:31)
[2019-01-22] MEDS ORDERED: TRAZ100T31 PO (11:33)
[2019-01-22] MEDS ORDERED: NIC10R INH (11:34)
[2019-01-22] MEDS ORDERED: [UNRECOGNIZED DRUG - OTHER] (11:35)
[2019-01-22] MEDS ORDERED: NICOTROL CARTRIDGE PO (11:36)
[2019-01-22] MEDS ORDERED: HYDR25CA83 PO (11:38)
[2019-01-22] MEDS ORDERED: ALB18R INH (11:44)
--- NOTE | 2019-01-22 14:18 | BHS Discharge Summary ---
[facility] Discharge Summary Mxsq-pf-Dean Encounter Date: Jan 22, 2019 [id number]-Etax Encounter Time: 09:00 Reason-Hosp/Final Diag (DSM-V): (1) Persistent depressive disorder Hospital Course & Plan: PRESENTING PROBLEM/CHIEF COMPLAINT "There is a lot of stress in my living situation. My daughter and I are complete codependent on each other and can be toxic. Another couple has been living with us for 2 months and I want the extra people out of my home. Lately, I have been drinking quite a bit and have had thoughts of going to sleep and not waking up." HISTORY OF PRESENT ILLNESS This patient is a 53-year-old , female that was brought to the emergency department on a voluntary basis, having been brought in by her daughter due to worsening depression and alcohol abuse. The patient reports multiple life stressors right now including her current living situation. Her daughter is facing some legal charges and is feeling overwhelmed and unsupported. The patient reports that the last couple of days she has been drinking up to a pint of vodka. Prior to that, she was drinking every other week. She has had increased depression and anxiety. Reports multiple stressors including her relationship with her daughter and current living situation in that another couple has come to live with them along with their 3-year-old child and not assisting with any financial obligation. The patient is reporting high anxiety and depression. She reports mild irritability and anger. She reports her sleep is mostly sufficient, taking trazodone 100 mg at night to help with insomnia. She does get up throughout the night. She denies a history of auditory or visual hallucinations. She denies a history of shara or psychosis. At times, she has racing thoughts at night, although contributes this to her current stressors. She reports low energy and appetite levels. She denies a history of nightmares or flash backs. She does report a history of over-eating when stressed and states that she has never been suicidal or had thought of hurting herself or ending her life, although she has had thoughts of going to sleep and not waking up. She has had two previous admissions at [facility] for depression, although these were before 2013. She denies a history of self-harm behaviors or suicide attempts. She is currently engaged with an individual therapist Anneliese at [facility], previously has seen Catherine Gutierrez at [facility] for medication management. She is agreeable to a voluntary admission to help with her current situation and was transferred to Behavioral Health on a voluntary basis. HOSPITAL COURSE Pt was admitted to [facility] and maintained on suicied precautions. She was initially detoxed with valium as per [facility] protocol, and this was uneventful. She participated in groups and mileau activities. She verbalized passive wishes throughout much of her stay, always connecting this to the extra people living at her home, saying they were driving her to feel this way. We had several team meetings with her daughter on speaker phone, and she was supportive-- she made it clear to the roommates that they had to move out. Pt was started on prozac for depression but after 3 days she complained of it being sedating, and therefore we switched to zoloft which she had tolerated well in the past. We also DC'd clonidine which she was using for prn for anxsiety, because her BP tended to run on the low side. We replaced it with vistaril which was effective. She continued on her trazodone 100 mg q HS for sleep. We did a continuous pulse ox which did not indicated sleep apnea. She will follow up with [facility] for in home therapy, and with DR. Wilkinson for medications. (2) Alcohol use disorder, mild, abuse Physical Exam Latest Vital Signs Vital Signs 01/22/19 08:05 Temp 97.5 Pulse 92 Resp 18 B/P (MAP) 102/68 (79) Pulse Ox 92 O2 Delivery Nasal Cannula O2 Flow Rate 2.0 Mental Status Exam General Appearance: Good Eye Contact, Cooperative, Polite, Good Interaction Speech: Clear, Spontaneous, Normal Rate, Normal Rhythm, Normal Volume, Normal Tone Mood: Euthymic Affect: Full and Appropriate, Calm Thought Process: Organized, Logical, Goal Directed; No Loose Associations, No Flight of Ideas Thought Content: No Suicidal Ideation, No Homicidal Ideation, No Delusions, No Auditory Halllucinations, No Visual Hallucinations, No Thought Broadcasting, No Ideas of Reference, No Obsessions, No Compulsions, No Other Sensorium: Clear Cognition: Alert & Oriented-Person, Alert & Oriented-Place, Alert & Oriented-T surjit, Sipgk-Rcdxzadx-Fkfswlori Memory: Immediate, Recent, Remote (grossly intact) Intelligence: Average Insight Judgment: Fair Departure Result Diagram: 01/17/19 0556 01/21/19 0632 Item Value Date Time White Blood Count 5.1 k/uL 01/17/19 0556 Red Blood Count 3.63 M/uL L 01/17/19 0556 Hemoglobin 12.2 g/dL 01/17/19 0556 Hematocrit 36.2 % 01/17/19 0556 Mean Corpuscular Volume 99.8 fL H 01/17/19 0556 Mean Corpuscular Hemoglobin 33.6 pg H 01/17/19 0556 Mean Corpuscular Hemoglobin Concent 33.7 g/dL 01/17/19 0556 Red Cell Distribution Width 15.6 % H 01/17/19 0556 Platelet Count 144 K/uL L 01/17/19 0556 Sodium Level 133 mmol/L L 01/21/19 0632 Potassium Level 4.5 mmol/L 01/21/19 0632 Chloride Level 92 mmol/L L 01/21/19 0632 Carbon Dioxide Level 35 mmol/L H 01/21/19 0632 Blood Urea Nitrogen 8 mg/dl 01/21/19 0632 Creatinine 0.70 mg/dl 01/21/19 0632 Glomerular Filtration Rate Calc > 60.0 01/21/19 0632 Calcium Level 8.8 mg/dl 01/21/19 0632 Random Glucose 89 mg/dl 01/21/19 0632 Total Bilirubin 0.8 mg/dl 01/21/19 0632 Aspartate Amino Transf (AST/SGOT) 30 U/L 01/21/19 0632 Alanine Aminotransferase (ALT/SGPT) 49 U/L 01/21/19 0632 Alkaline Phosphatase 60 U/L 01/21/19 0632 Total Protein 5.5 g/dl L 01/21/19 0632 Albumin 3.3 g/dl L 01/21/19 0632 Magnesium Level 1.7 mg/dl 01/21/19 0000 Thyroid Stimulating Hormone (TSH) 1.67 uIU/ml 01/15/192015 Salicylates Level < 10 mg/L 01/15/192015 Salicylate Last Dose Date unknown 01/15/192015 Urine Opiates Screen Negative 01/15/192001 Acetaminophen Level < 10 ug/ml 01/15/192015 Urine Barbiturates Screen Negative 01/15/192001 Ur Tricyclic Antidepressants Screen Negative 01/15/192001 Urine Phencyclidine Screen Negative 01/15/192001 Urine Amphetamines Screen Negative 01/15/192001 Urine Benzodiazepines Screen Negative 01/15/192001 Urine Cocaine Screen Negative 01/15/192001 Urine Cannabinoids Screen Negative 01/15/192001 Serum Alcohol 136 mg/dl 01/15/192015 Urine Color Yellow 01/15/192001 Urine Clarity Clear 01/15/192001 Urine pH 6.0 pH 01/15/192001 Urine Specific [place] 1.012 01/15/192001 Urine Protein 30 mg/dL 01/15/192001 Urine Glucose (UA) Negative mg/dL 01/15/192001 Urine Ketones Trace mg/dL 01/15/192001 Urine Blood Small 01/15/192001 Urine Nitrite Negative 01/15/192001 Urine Bilirubin Negative 01/15/192001 Urine Urobilinogen 4.0 mg/dL H 01/15/192001 Urine Leukocyte Esterase Negative 01/15/192001 Urine RBC <1 /HPF 01/15/192001 Urine WBC 3 /HPF 01/15/192001 Urine Squamous Epithelial Cells Many /LPF H 01/15/192001 Urine Bacteria Negative /HPF 01/15/192001 Urine Hyaline Casts Few /LPF 01/15/192001 Urine Mucus None /HPF 01/15/192001 Urine HCG, Qualitative Negative 01/15/192001 Condition: Improved Discharge to: Home Discharge Instructions Home Meds Reported Medications Albuterol Sulfate (VENTOLIN HFA) 18 Gm Inh, 2 PUFF INH Q4H PRN for SHORTNESS OF BREATH, INH 01/22/19 Hydroxyzine Pamoate (VISTARIL) 25 Mg Capsule, 25 MG PO Q6H PRN for ANXIETY, CAPSULE 01/22/19 [Nicotrol Cartridge] No Conflict Check, 1 EA PO PRN PRN for NICOTINE REPLACEMENT 01/22/19 Nicotine (NICOTROL) 10 Mg/Inh Ctr, 10 MG INH PRN PRN for NICOTINE REPLACEMENT 01/22/19 Trazodone Hcl (TRAZODONE HCL) 100 Mg Tablet, 100 MG PO QHS, TAB 01/22/19 Sertraline Hcl (ZOLOFT) 100 Mg Tablet, 100 MG PO QAM, TAB 01/22/19 Nystatin 100,000 Unit/Gm Top Powder (NYSTATIN 100,000 UNIT/GM TOP POWDER) 15 Gm Powder, 1 JOSIE TP BID, 01/22/19 Hydrochlorothiazide (HYDROCHLOROTHIAZIDE) 25 Mg Tablet, 1 TAB PO QDAY, TAB 11/10/18 Discontinued Reported Medications Calcium Carbonate (CALCIUM CARBONATE) 600 Mg Tablet, 600 MG PO BID 01/16/19 Trazodone Hcl (TRAZODONE HCL) 50 Mg Tablet, 50 MG PO TID 11/10/18 Discontinued Scripts Clonidine Hcl (CLONIDINE HCL) 0.1 Mg Tablet, 0.1 MG PO BID PRN for HYPERTENSION, #14 TAB Prov:JUAN ÁLVAREZ PROCESS CONTROLLER 11/10/18 Prednisone 10 Mg Tab (PREDNISONE 10 MG TAB) 10 Mg Tablet, 10 MG PO DIRECTED, #30 TAB Take 4 tab daily x 3 days, then 3 tab daily x 3 days, then 2 tabs daily x 3 day, then 1 tab daily x 3 days. Prov:SUMMER VERDE DO 12/29/18 Oseltamivir Phosphate (TAMIFLU) 75 Mg Cap, 75 MG PO BID, #4 CAP Prov:SUMMER VERDE DO 12/29/18 Multpiple Antipsychotics Used: No Diet: Regular Activity: As Tolerated Special Instructions: Take medications as prescribed. Follow up with outpatient provider for medication management. Follow up with outpatient therapy. Abstain from alcohol & all illicit substances. Join AA. Obtain an AA Sponsor & utilize them. Show your provider the results of our overnight pulse oximeter test & follow up as needed. Call Crisis Line should symptoms return. CATHERINE KAISER MD Jan 22, 2019 14:18
== END 2019-01-22 13:35 | disposition home or self-care (01) | DRG 897 ==
LOC: BHS 21:38
PROVIDERS: ADMIT Nurse Practitioner Psychiatric/Mental Health; ATTEND Nurse Practitioner Psychiatric/Mental Health
DX: F10.10 Alcohol abuse, uncomplicated (principal); F43.23 Adjustment disorder with mixed anxiety and depressed mood; E83.42 Hypomagnesemia; J44.9 Chronic obstructive pulmonary disease, unspecified; Z99.81 Dependence on supplemental oxygen; Z63.79 Other stressful life events affecting family and household; Z79.83 Long term (current) use of bisphosphonates; Z72.0 Tobacco use; G47.00 Insomnia, unspecified; F34.1 Dysthymic disorder
CPT/HCPCS: 36415; 80305; 80320; 80329; 81001; 81025; 82040; 82247; 82310; 82374; 82435; 82565; 82947; 83735; 84075; 84132; 84155; 84295; 84443; 84450; 84460; 84520; 85025; 99284; Q0177

== ENCOUNTER 2019-03-07 12:23 | Emergency (ER) | payer MEDICAID ==
[2018-12-30 08:38] VITALS: Wt 104.3 kg
[~2019-03-07 12:23] MED LIST changes: +HYDR25CA83 PO; +NIC10R INH; +NICOTROL CARTRIDGE PO; +NYST15PO4 TP; +SERT-173 PO; +TRAZ100T31 PO; +[UNRECOGNIZED DRUG - OTHER]
[2019-03-07] MEDS ORDERED: ALBUTEROL/IPRATROPIUM 3 ML NEB NEB ONE ×2 (12:35→13:45)
--- NOTE | 2019-03-07 12:41 | ER Report ---
History and Physical Time Seen By MD: 12:40 HPI/ROS CHIEF COMPLAINT: Fever, cough HISTORY OF PRESENT ILLNESS: Patient is a 54-year-old female with COPD on O2 presents with 3 days of cough congestion and fever like symptoms. She has been ill contacts at home 3-year-old with pneumonia. She states that she is prone to pneumonia. She's been coughing more frequently feels more short of breath with exertion than usual. She denies chest pain she denies abdominal pain. No nausea vomiting or diarrhea. REVIEW OF SYSTEMS: Constitutional: Fevers Eyes: No discharge. ENT: No sore throat. Cardiovascular: No chest pain, no palpitations. Respiratory: Cough, shortness of breath Gastrointestinal: No abdominal pain, no vomiting. Genitourinary: No hematuria. Musculoskeletal: No back pain. Skin: No rashes. Neurological: No headache. Allergies: Coded Allergies: Phenothiazines (Verified Allergy, Unknown, 01/15/19) Home Meds Active Scripts Azithromycin (ZITHROMAX) 250 Mg Tablet, 2 TAB PO QDAY for 2 Days, #4 TAB 0 Refills Next dose on 03/08/19 Prov:CANDI PUENTE MD 03/07/19 Prednisone (PREDNISONE) 20 Mg Tablet, 60 MG PO QDAY, #12 TAB 0 Refills Prov:CANDI PUENTE MD 03/07/19 Reported Medications Albuterol Sulfate (VENTOLIN HFA) 18 Gm Inh, 2 PUFF INH Q4H PRN for SHORTNESS OF BREATH, INH 01/22/19 Hydroxyzine Pamoate (VISTARIL) 25 Mg Capsule, 25 MG PO Q6H PRN for ANXIETY, CAPSULE 01/22/19 [Nicotrol Cartridge] No Conflict Check, 1 EA PO PRN PRN for NICOTINE REPLACEMENT 01/22/19 Nicotine (NICOTROL) 10 Mg/Inh Ctr, 10 MG INH PRN PRN for NICOTINE REPLACEMENT 01/22/19 Trazodone Hcl (TRAZODONE HCL) 100 Mg Tablet, 100 MG PO QHS, TAB 01/22/19 Sertraline Hcl (ZOLOFT) 100 Mg Tablet, 100 MG PO QAM, TAB 01/22/19 Nystatin 100,000 Unit/Gm Top Powder (NYSTATIN 100,000 UNIT/GM TOP POWDER) 15 Gm Powder, 1 JOSIE TP BID, 01/22/19 Hydrochlorothiazide (HYDROCHLOROTHIAZIDE) 25 Mg Tablet, 1 TAB PO QDAY, TAB 11/10/18 Past Medical/Surgical History Past medical history for hypertension, COPD chronic oxygen dependence, history of magnesium anemia hypocalcemia, alcohol use and abuse. Hx Smoking: Yes Smoking Status: Light Tobacco Smoker Exposure to Second Hand Smoke?: Yes Hx Substance Use Disorder: No Hx Alcohol Use: Yes Constitutional Vital Sign - Last 24 Hours 03/07/19 03/07/19 03/07/19 03/07/19 12:30 12:33 12:37 12:40 Temp 98.3 Pulse ??? 77 Resp 22 B/P (MAP) 149/100 (116) 97/68 (78) 149/100 Pulse Ox 90 O2 Delivery Nasal Cannula O2 Flow Rate 3.0 03/07/19 03/07/19 03/07/19 03/07/19 13:00 13:02 13:02 13:12 Pulse 81 95 100 Resp 13 18 18 B/P (MAP) 125/90 (102) Pulse Ox 94 94 O2 Delivery Nasal Cannula O2 Flow Rate 3.0 03/07/19 03/07/19 03/07/19 03/07/19 13:30 14:00 14:07 14:08 Pulse 104 99 96 Resp 15 10 B/P (MAP) 132/94 (107) Pulse Ox 91 88 03/07/19 03/07/19 14:08 14:17 Pulse Ox 96 84 O2 Delivery Nasal Cannula Room Air O2 Flow Rate 3.0 Physical Exam General Appearance: The patient is alert, has no immediate need for airway protection and no signs of toxicity. Eyes: Pupils equal and round no pallor or injection. ENT, Mouth: Mucous membranes are moist. Respiratory: There are no retractions, lungs are clear to auscultation. Cardiovascular: Regular rate and rhythm. Gastrointestinal: Abdomen is soft and non tender, no masses, bowel sounds normal. Neurological: Skin: Warm and dry, no rashes. Musculoskeletal: Neck is supple non tender. Extremities are nontender, nonswollen and have full range of motion. Medical Decision Making Data Points Result Diagram: 03/07/19 1241 03/07/19 1241 Laboratory Hematology Test 03/07/19 12:41 Red Blood Count 4.25 M/uL (4.17-5.56) Mean Corpuscular Volume 97.2 fL (80.0-96.0) Mean Corpuscular Hemoglobin 32.7 pg (26.0-33.0) Mean Corpuscular Hemoglobin Concent 33.7 g/dL (32.0-36.0) Red Cell Distribution Width 14.8 % (11.5-14.5) Mean Platelet Volume 7.6 fL (7.2-11.1) Neutrophils (%) (Auto) 73.8 % (39.4-72.5) Lymphocytes (%) (Auto) 19.7 % (17.6-49.6) Monocytes (%) (Auto) 4.9 % (4.1-12.4) Eosinophils (%) (Auto) 0.8 % (0.4-6.7) Basophils (%) (Auto) 0.8 % (0.3-1.4) Nucleated RBC Relative Count (auto) 0.0 /100WBC Neutrophils # (Auto) 7.4 K/uL (2.0-7.4) Lymphocytes # (Auto) 2.0 K/uL (1.3-3.6) Monocytes # (Auto) 0.5 K/uL (0.3-1.0) Eosinophils # (Auto) 0.1 K/uL (0.0-0.5) Basophils # (Auto) 0.1 K/uL (0.0-0.1) Nucleated RBC Absolute Count (auto) 0.00 K/uL Sodium Level 134 mmol/L (137-145) Potassium Level 3.1 mmol/L (3.5-5.0) Chloride Level 90 mmol/L (98-107) Carbon Dioxide Level 31 mmol/L (22-31) Blood Urea Nitrogen 10 mg/dl (7-18) Creatinine 0.80 mg/dl (0.52-1.04) Glomerular Filtration Rate Calc > 60.0 Random Glucose 74 mg/dl (75-110) Calcium Level 8.5 mg/dl (8.4-10.2) Total Bilirubin 0.9 mg/dl (0.2-1.3) Aspartate Amino Transf (AST/SGOT) 69 U/L (0-35) Alanine Aminotransferase (ALT/SGPT) 44 U/L (0-56) Alkaline Phosphatase 84 U/L (0-126) Total Protein 7.0 g/dl (6.3-8.2) Albumin 4.0 g/dl (3.5-5.0) Chemistry Test 03/07/19 12:41 White Blood Count 10.1 k/uL (4.5-11.0) Red Blood Count 4.25 M/uL (4.17-5.56) Hemoglobin 13.9 g/dL (12.0-16.0) Hematocrit 41.3 % (34.0-47.0) Mean Corpuscular Volume 97.2 fL (80.0-96.0) Mean Corpuscular Hemoglobin 32.7 pg (26.0-33.0) Mean Corpuscular Hemoglobin Concent 33.7 g/dL (32.0-36.0) Red Cell Distribution Width 14.8 % (11.5-14.5) Platelet Count 332 K/uL (150-450) Mean Platelet Volume 7.6 fL (7.2-11.1) Neutrophils (%) (Auto) 73.8 % (39.4-72.5) Lymphocytes (%) (Auto) 19.7 % (17.6-49.6) Monocytes (%) (Auto) 4.9 % (4.1-12.4) Eosinophils (%) (Auto) 0.8 % (0.4-6.7) Basophils (%) (Auto) 0.8 % (0.3-1.4) Nucleated RBC Relative Count (auto) 0.0 /100WBC Neutrophils # (Auto) 7.4 K/uL (2.0-7.4) Lymphocytes # (Auto) 2.0 K/uL (1.3-3.6) Monocytes # (Auto) 0.5 K/uL (0.3-1.0) Eosinophils # (Auto) 0.1 K/uL (0.0-0.5) Basophils # (Auto) 0.1 K/uL (0.0-0.1) Nucleated RBC Absolute Count (auto) 0.00 K/uL Glomerular Filtration Rate Calc > 60.0 Calcium Level 8.5 mg/dl (8.4-10.2) Total Bilirubin 0.9 mg/dl (0.2-1.3) Aspartate Amino Transf (AST/SGOT) 69 U/L (0-35) Alanine Aminotransferase (ALT/SGPT) 44 U/L (0-56) Alkaline Phosphatase 84 U/L (0-126) Total Protein 7.0 g/dl (6.3-8.2) Albumin 4.0 g/dl (3.5-5.0) ED Course/Re-evaluation ED Course 03/07/2019 2:05:34 pm with COPD exacerbation and acute bronchitis we'll treat for 3 days with oral Zithromax and 5 day course of oral prednisone and dispensed an inhaler. Decision to Disposition Date: Mar 07, 2019 Decision to Disposition Time: 14:04 Depart Departure Latest Vital Signs Vital Signs Date Time Temp Pulse Resp B/P (MAP) Pulse Ox O2 Delivery O2 Flow Rate FiO2 03/07/19 14:17 84 Room Air 03/07/19 14:08 3.0 03/07/19 14:08 96 03/07/19 14:07 132/94 (107) 03/07/19 14:00 10 03/07/19 12:37 98.3 Impression: Primary Impression: COPD exacerbation Additional Impression: Bronchitis Condition: Improved Disposition: HOME OR SELF-CARE New Scripts Azithromycin (ZITHROMAX) 250 Mg Tablet 2 TAB PO QDAY for 2 Days, #4 TAB 0 Refills Next dose on 03/08/19 Prov: CANDI PUENTE MD 03/07/19 Prednisone (PREDNISONE) 20 Mg Tablet 60 MG PO QDAY, #12 TAB 0 Refills Prov: CANDI PUENTE MD 03/07/19 Departure Forms: ER Transition Record, Home Oxygen, Nebulizer RX, Home Oxygen [facility] Equipment-Oxygen: Portable Oxygen Gas Reason for Use/Diagnosis: copd Start Date of the Order: Mar 07, 2019 Dosage or Concentration (if applicable) - LPM: 3 Route of Administration (if applicable): Nasal Cannula Frequency of Use: Continuous Duration Home O2 Required: 999 Duration Units: Days Room Air Oxygen Saturation: 84 ER Prescribing Physician's Name: Candi Puente NPI Numbers for Local ER MDs: [id number] Medications Reconciliation, Patient Portal Information Patient Instructions: Acute Bronchitis (ED) Problem Qualifiers CANDI PUENTE MD Mar 07, 2019 12:41
[2019-03-07 13:06] LABS: PLATELET COUNT, AUTOMATED 332 K/uL (150-450)
--- NOTE | 2019-03-07 13:54 | RADIOLOGY IMAGING REPORT ---
FACILITY: [facility] - [place], [place] PATIENT NAME: Stacy Sommer : 1965 MR: [id number] V: [id number] EXAM DATE: ORDERING PHYSICIAN: CANDI BROWN TECHNOLOGIST: Location: [facility] Patient: Stacy Sommer : 1965 Visit/Account:[id number] Date of Sevice: 03/07/2019 Exam type: CHEST PA LAT History: Cough Comparison: 12/27/2018. Findings: Both lungs are well-expanded and clear. There is no focal infiltrate, pleural effusion or pneumothora x. Tiny dense focus overlying the left anterior 2nd rib may represent small granuloma or bone island. Heart size is prominent. The osseous structures demonstrate degenerative changes. IMPRESSION: 1. No acute cardiopulmonary disease. Report Dictated By: Sylvester Borrego MD at 03/07/2019 1:48 PM Report E-Signed By: Sylvester Borrego MD at 03/07/2019 1:50 PM WSN:[id number]
[2019-03-07] MEDS ORDERED: predniSONE 20 MG TAB PO ONE (14:00)
[2019-03-07] MEDS ORDERED: AZITHROMYCIN 250 MG TAB PO ONE (14:00)
[2019-03-07] MEDS ORDERED: ALBUTEROL 8 GM INHALER INH ONE (14:00)
[2019-03-07] MEDS ORDERED: PRED20TA6 PO (14:04)
[2019-03-07] MEDS ORDERED: AZIT-1 PO (14:04)
[2019-03-07 14:07] VITALS: BP 132/94
== END 2019-03-07 15:26 | disposition home or self-care (01) ==
LOC: ER 12:43
DX: J44.1 Chronic obstructive pulmonary disease with (acute) exacerbation (principal); J20.9 Acute bronchitis, unspecified
CPT/HCPCS: 71046; 85025; 94640; 99283; J7512; J7620; Q0144; 82040; 82247; 82310; 82374; 82435; 82565; 82947; 84075; 84132; 84155; 84295; 84450; 84460; 84520

== ENCOUNTER 2019-06-26 17:14 | Emergency (ER) | payer MEDICAID ==
[2018-12-30 08:38] VITALS: Wt 104.3 kg
[2019-06-26] MEDS ORDERED: NS(*) 0.9% 500 ML BAG 500 ML IV ONE (17:22)
--- NOTE | 2019-06-26 17:22 | ER Report ---
History and Physical Time Seen By MD: 17:17 (CANDI PUENTE MD) HPI/ROS CHIEF COMPLAINT: Alcohol intoxication, adjustment reaction HISTORY OF PRESENT ILLNESS: Patient is a 54-year-old female who is brought in for wellness evaluation by [facility]. Patient has a long history of episodic alcohol abuse. Apparently what she was telling me today was that she's had multiple life stressors recently. Her daughter was just released from nursing home in [place]. Further a stepbrother that she has remained friends with despite her divorce from her called to ask to speak with her because he was on his bed. This greatly upset the patient and she began drinking today. She states she drank a 5th and a half of vodka today. [employer] also give some history that the patient was prescribed some sedative type medications in the past but is unclear whether if she took them or not. The patient denies. Patient further denies that she is suicidal or homicidal. It was the patient's daughter who called the ambulance today because they were concerned about her alcohol use. REVIEW OF SYSTEMS: Constitutional: No fever, no chills. Eyes: No discharge. ENT: No sore throat. Cardiovascular: No chest pain, no palpitations. Respiratory: Chronic COPD and shortness of breath O2 dependent Gastrointestinal: No abdominal pain, no vomiting. Genitourinary: No hematuria. Musculoskeletal: No back pain. Skin: No rashes. Neurological: No headache. Psychiatric: No suicidal or homicidal ideation. Patient reports feeling depressed and sad (CANDI PUENTE MD) Allergies: Coded Allergies: Phenothiazines (Verified Allergy, Unknown, 01/15/19) Home Meds Active Scripts Azithromycin (ZITHROMAX) 250 Mg Tablet, 2 TAB PO QDAY for 2 Days, #4 TAB 0 Refills Next dose on 03/08/19 Prov:CANDI PUENTE MD 03/07/19 Prednisone (PREDNISONE) 20 Mg Tablet, 60 MG PO QDAY, #12 TAB 0 Refills Prov:CANDI PUENTE MD 03/07/19 Reported Medications Albuterol Sulfate (VENTOLIN HFA) 18 Gm Inh, 2 PUFF INH Q4H PRN for SHORTNESS OF BREATH, INH 01/22/19 Hydroxyzine Pamoate (VISTARIL) 25 Mg Capsule, 25 MG PO Q6H PRN for ANXIETY, CAPSULE 3/15/19 [Nicotrol Cartridge] No Conflict Check, 1 EA PO PRN PRN for NICOTINE REPLACEMENT 01/22/19 Nicotine (NICOTROL) 10 Mg/Inh Ctr, 10 MG INH PRN PRN for NICOTINE REPLACEMENT 01/22/19 Trazodone Hcl (TRAZODONE HCL) 100 Mg Tablet, 100 MG PO QHS, TAB 01/22/19 Sertraline Hcl (ZOLOFT) 100 Mg Tablet, 100 MG PO QAM, TAB 01/22/19 Nystatin 100,000 Unit/Gm Top Powder (NYSTATIN 100,000 UNIT/GM TOP POWDER) 15 Gm Powder, 1 JOSIE TP BID, 01/22/19 Hydrochlorothiazide (HYDROCHLOROTHIAZIDE) 25 Mg Tablet, 1 TAB PO QDAY, TAB 11/10/18 Past Medical/Surgical History Past medical history for COPD and is oxygen dependent, history of alcohol abuse, history of cervical cancer, history of herniated disc in her neck status post laser surgery with good results. (CANDI PUENTE MD) Hx Smoking: Yes Smoking Status: Light Tobacco Smoker Exposure to Second Hand Smoke?: Yes Hx Substance Use Disorder: No Hx Alcohol Use: Yes (CANDI PUENTE MD) Constitutional Vital Sign - Last 24 Hours 06/26/19 06/26/19 06/26/19 06/26/19 17:21 17:43 17:43 17:53 Temp 98.6 Pulse 88 87 Resp 16 18 B/P (MAP) 104/74 Pulse Ox 95 85 95 O2 Delivery Room Air Room Air Nasal Cannula O2 Flow Rate 5.0 06/26/19 06/26/19 06/26/19 06/26/19 17:53 18:00 18:24 18:30 Pulse 94 99 91 Resp 18 29 B/P (MAP) 98/70 (79) 116/84 (95) Pulse Ox 87 89 06/26/19 19:00 Resp 70 (GEOVANY GARCÍA DO) Physical Exam General/Constitutional: Patient is awake, alert, nontoxic and in no acute respiratory distress. Patient is wearing 6 L nasal cannula and satting 96% on room air. Head: Normocephalic and atraumatic. Eyes: Conjunctival clear, Pupils are equal and reactive to light. Extraocular muscles are intact and symmetrical. Sclera are clear and anicteric. Ears:External canals are clear. Tympanic membranes are clear with normal landmarks and light reflex. Nares: No rhinorrhea or bleeding. Turbinates are pink and moist. Oropharyngeal: Mucous membranes are moist. There is no pharyngeal erythema or exudate. There are no palatal petechiae. Uvula is midline and symmetrical. Neck: Supple, no adenopathy. Cardiovascular: Heart is regular rate and rhythm without audible murmurs, rubs or gallops. Pulmonary: Lungs are noted for decreased breath sounds bilaterally with prolonged expiratory phase and audible expiratory wheeze. Abdomen: Protuberant but nontender Extremities: No gross deformities, No peripheral cyanosis. Able to move all 4 extremities. Neuro: Alert and oriented X3, Skin: No rashes, skin is warm dry and well perfused. Psychiatric: No suicidal or homicidal ideation. Patient does appear intoxicated but thought process is logical and goal-directed. Patient is tearful and sad" congruent with affect. Patient does not seem to be responding to any internal stimuli. (CANDI PUENTE MD) Medical Decision Making Data Points Result Diagram: 06/26/19 1736 06/26/19 1736 Laboratory Hematology Test 06/26/19 17:36 White Blood Count 8.1 k/uL (4.5-11.0) Red Blood Count 3.48 M/uL (4.17-5.56) L Hemoglobin 12.8 g/dL (12.0-16.0) Hematocrit 36.0 % (34.0-47.0) Mean Corpuscular Volume 103.5 fL (80.0-96.0) H Mean Corpuscular Hemoglobin 36.7 pg (26.0-33.0) H Mean Corpuscular Hemoglobin Concent 35.4 g/dL (32.0-36.0) Red Cell Distribution Width 15.9 % (11.5-14.5) H Platelet Count 319 K/uL (150-450) Mean Platelet Volume 7.4 fL (7.2-11.1) Neutrophils (%) (Auto) 54.4 % (39.4-72.5) Lymphocytes (%) (Auto) 37.8 % (17.6-49.6) Monocytes (%) (Auto) 6.8 % (4.1-12.4) Eosinophils (%) (Auto) 0.7 % (0.4-6.7) Basophils (%) (Auto) 0.3 % (0.3-1.4) Nucleated RBC Relative Count (auto) 0.1 /100WBC Neutrophils # (Auto) 4.4 K/uL (2.0-7.4) Lymphocytes # (Auto) 3.1 K/uL (1.3-3.6) Monocytes # (Auto) 0.6 K/uL (0.3-1.0) Eosinophils # (Auto) 0.1 K/uL (0.0-0.5) Basophils # (Auto) 0.0 K/uL (0.0-0.1) Nucleated RBC Absolute Count (auto) 0.01 K/uL Chemistry Test 06/26/19 17:36 Sodium Level 137 mmol/L (137-145) Potassium Level 2.9 mmol/L (3.5-5.0) Chloride Level 94 mmol/L (98-107) Carbon Dioxide Level 32 mmol/L (22-31) Blood Urea Nitrogen 8 mg/dl (7-18) Creatinine 0.70 mg/dl (0.52-1.04) Glomerular Filtration Rate Calc > 60.0 Random Glucose 85 mg/dl (75-110) Calcium Level 8.7 mg/dl (8.4-10.2) Magnesium Level 1.3 mg/dl (1.7-2.2) Total Bilirubin 0.8 mg/dl (0.2-1.3) Aspartate Amino Transf (AST/SGOT) 102 U/L (0-35) Alanine Aminotransferase (ALT/SGPT) 64 U/L (0-56) Alkaline Phosphatase 73 U/L (0-126) Total Protein 6.8 g/dl (6.3-8.2) Albumin 3.8 g/dl (3.5-5.0) Thyroid Stimulating Hormone (TSH) 1.67 uIU/ml (0.46-4.68) Toxicology Test 06/26/19 17:36 06/26/19 18:30 Salicylates Level < 10 mg/L Salicylate Last Dose Date unk Acetaminophen Level < 10 ug/ml Serum Alcohol 250 mg/dl Urine Opiates Screen Negative Urine Barbiturates Screen Negative Ur Tricyclic Antidepressants Screen Negative Urine Phencyclidine Screen Negative Urine Amphetamines Screen Negative Urine Benzodiazepines Screen Negative Urine Cocaine Screen Negative Urine Cannabinoids Screen Negative Urinalysis Test 06/26/19 18:30 Urine Color Yellow Urine Clarity Clear Urine pH 6.0 pH (4.8-9.5) Urine Specific [place] 1.005 Urine Protein Negative mg/dL (NEGATIVE) Urine Glucose (UA) Negative mg/dL (NEGATIVE) Urine Ketones Negative mg/dL (NEGATIVE) Urine Blood Negative (NEGATIVE) Urine Nitrite Negative (NEGATIVE) Urine Bilirubin Negative (NEGATIVE) Urine Urobilinogen Negative mg/dL (0.2-1.9) Urine Leukocyte Esterase Negative (NEGATIVE) Urine RBC 1 /HPF (0-2/HPF) Urine WBC 3 /HPF (0-5/HPF) Urine Squamous Epithelial Cells Many /LPF (</=FEW) Urine Transitional Epithelial Cells Few /LPF (NONE-FEW) Urine Bacteria Few /HPF (NONE-FEW) Urine Mucus None /HPF (NONE-FEW) (GEOVANY GARCÍA DO) EKG/Imaging Imaging X-ray: Single view chest x-ray was obtained. I viewed the images myself on the PACS system. My interpretation of the images is: No infiltrate, no effusion, normal mediastinum, there is some atelectasis and scarring in the left base. On comparison to previous chest x-ray dated 03/07/19. There is indeed some residual scarring there present probably no significant change. The radiologist interpretation had no clinically significant variation from this interpretation. (GEOVANY GARCÍA DO) ED Course/Re-evaluation ED Course 06/26/2019 5:37:13 pm : Patient with acute alcohol intoxication, no suicidality or homicidal ideation noted. Patient with what appears to be situational depression and anxiety in relation to the loss of her [id number]. Plan at this time will be medical screening exam. We will offer psychiatric services to the patient however I find no reason at this juncture to detain the patient. 06/26/2019 5:49:52 pm : Patient was made aware that her daughter is currently in custody of the [employer] [place] [employer] it is unclear of the nature of the circumstances but we did make patient aware. Patient tearful and is willing to speak with S at this time. Decision to Disposition Date: Jun 26, 2019 Decision to Disposition Time: 19:00 (CANDI PUENTE MD) ED Course Care was assumed at shift change from Dr. Puente, patient grossly intoxicated, having a fight with her daughter. Patient was brought in for mental health evaluation. She is not homicidal or suicidal. I spoke with her length. I discussed results of her chest x-ray, which were unremarkable. Her diagnostic studies show a blood alcohol of 250. Her tox screen was unremarkable. Her potassium returned at 2.9. Her LFTs are mildly elevated adjusting alcoholic hepatitis,? She would like to go home. We will make arrangements. She states she needs portable O2 to go home to her condenser. Patient was advised to follow-up with the mental health resources provided. She was also given the names of Dr. Lizz Wilkinson to follow-up and get established primary care here in [email or web address]. Decision to Disposition Date: Jun 26, 2019 Decision to Disposition Time: 18:35 (GEOVANY GARCÍA DO) Depart Departure Latest Vital Signs Vital Signs Date Time Temp Pulse Resp B/P (MAP) Pulse Ox O2 Delivery O2 Flow Rate FiO2 06/26/19 19:00 70 06/26/19 18:30 91 89 06/26/19 18:24 116/84 (95) 06/26/19 17:53 Nasal Cannula 5.0 06/26/19 17:21 98.6 (GEOVANY GARCÍA DO) Impression: Primary Impression: Adjustment disorder with depressed mood Additional Impressions: Alcohol intoxication Hypokalemia COPD (chronic obstructive pulmonary disease) Abnormal LFTs Condition: Improved Disposition: HOME OR SELF-CARE Referrals: DARRYL WILKINSON MD, FARRUKH MD Patient Instructions: Alcohol Intoxication (ED), Depression (ED), Hypokalemia (ED) Additional Instructions: Follow-up with primary care or mental health resources this next week Problem Qualifiers Additional Impressions: Alcohol intoxication Complication of substance-induced condition: uncomplicated Qualified Codes: F10.920 - Alcohol use, unspecified with intoxication, uncomplicated COPD (chronic obstructive pulmonary disease) COPD type: unspecified COPD Qualified Codes: J44.9 - Chronic obstructive pulmonary disease, unspecified CANDI PUENTE MD Jun 26, 2019 17:21 GEOVANY GARCÍA DO Jun 26, 2019 18:46
[2019-06-26] MEDS ORDERED: IPRATROPIUM 0.5MG/2.5ML NEB NEB ONE (17:25)
[2019-06-26] MEDS ORDERED: ALBUTEROL 2.5 MG/0.5ML ER ONLY NEB ONE (17:25)
[2019-06-26] MEDS ORDERED: THIAMINE HCL 200 MG/2 ML INJ IVP ONE (17:25)
[2019-06-26] MEDS ORDERED: THIAMINE HCL 100 MG TAB PO ONE (17:40)
[2019-06-26 17:53] LABS: PLATELET COUNT, AUTOMATED 319 K/uL (150-450)
[2019-06-26] MEDS ORDERED: hydrOXYzine 25 MG TAB PO ONE (17:55)
[2019-06-26] MEDS ORDERED: POTASSIUM CHL 20 MEQ TABCR PO ONE (18:15)
[2019-06-26 18:24] VITALS: BP 116/84
--- NOTE | 2019-06-26 18:54 | RADIOLOGY IMAGING REPORT ---
[place]AC[place] [facility] [place]IENT NAME: Stacy Sommer : 1965 MR: [id number] V: [id number] EXAM DATE: ORDERING PHYSICIAN: CANDI BROWN TECHNOLOGIST: [facility] Patient: Stacy Sommer : 1965 Visit/Account:[id number] Date of Sevice: 06/26/2019 CHEST SINGLE AP Indication: Respiratory distress, COPD, smoker. Comparison: 03/07/2019 Findings: Heart size within normal limits. Scarring or atelectasis in the left lung base is unchanged. There is no focal infiltrate or lobar consolidation. No pneumothorax or pleural effusion. IMPRESSION: 1. No acute cardiopulmonary process. Report Dictated By: EM MCKEON at 06/26/2019 6:38 PM Report E-Signed By: EM MCKEON at 06/26/2019 6:47 PM WSN:[id number]
== END 2019-06-26 19:34 | disposition home or self-care (01) ==
LOC: ER 17:25
DX: F43.21 Adjustment disorder with depressed mood (principal); F10.920 Alcohol use, unspecified with intoxication, uncomplicated; J44.9 Chronic obstructive pulmonary disease, unspecified; R79.89 Other specified abnormal findings of blood chemistry; E87.6 Hypokalemia; R06.02 Shortness of breath; R06.00 Dyspnea, unspecified
CPT/HCPCS: 71045; 80305; 81001; 83735; 84443; 85025; 94640; 96360; 96361; 99283; G0480; J7040; J7611; J7644; 80320; 80329; 82040; 82247; 82310; 82374; 82435; 82565; 82947; 84075; 84132; 84155; 84295; 84450; 84460; 84520

== ENCOUNTER → 2019-06-26 | Outpatient (CLI) | payer MEDICAID ==
[2018-12-30 08:38] VITALS: BMI 49.1
[~2019-06-26] MED LIST changes: +AZIT-1 PO; -TRAZ50TA34 PO; +TRAZ50TA52 PO
== END ==
LOC: AMB 16:46
PROVIDERS: ATTEND Nurse Practitioner
DX: R41.82 Altered mental status, unspecified (principal); F10.129 Alcohol abuse with intoxication, unspecified
CPT/HCPCS: A0425; A0429